=== PATIENT | female | born 1955 | race African-American/Black ===

== ENCOUNTER 2017-01-22 08:45 | Emergency (ER) | payer MEDICAID ==
[~2017-01-22] VITALS: Ht 165.1 cm; Wt 105.0 kg
[~2017-01-22 08:45] MED LIST: ALBU8I INH; AMIT75 PO; AMLO5TAB22 PO; APIDINJ SQ; CIPR500T4 PO; CYCL1PAK PO; CYMB30CA PO; FERR324T4 PO; LAMO100 PO; LISI-360 PO; METF1000 PO; NOVOLOGSS SQ; RANI150T PO
[2017-01-22 08:54] VITALS: BP 153/66; PULSE 108; RESP 16; TEMP 98.5; O2SAT 95
--- NOTE | 2017-01-22 09:13 | PD ---
HPI Chief Complaint: Injury Time Seen by Provider: 09:00 Travel History International Travel<30 days: No Contact w/Intl Traveler<30days: No Traveled to known affect area: No History of Present Illness HPI 61-year-old female arrives today is after a fall on the sidewalk mechanical in nature. She injured her right fourth finger at the time of the fall and has since had constant pain. It's worse with active or passive range of motion. Associated symptoms include swelling and some ecchymosis. Onset sudden. Timing constant. PFSH Past Medical History Hx Anticoagulant Therapy: Yes Asthma: No Blood Disorders: No Anxiety: Yes Depression: Yes Heart Rhythm Problems: Yes (RAPID HEARTBEAT) Cancer: No Cardiovascular Problems: Yes (HTN, CHOL) High Cholesterol: Yes Chemotherapy: No Chest Pain: No Congestive Heart Failure: No COPD: Yes Diabetes: Yes Diminished Hearing: No Endocrine: Yes Genitourinary: No Hypertension: Yes Immune Disorder: No Musculoskeletal: Yes (ARTHRITIS, GENERALIZED WEAKNESS, SPUR LEFT FT) Neurologic: Yes (TREMORS) Psychiatric: Yes Reproductive: No Respiratory: Yes Radiation Therapy: No Sleep Apnea: Yes Thyroid Disease: No ?: Not Menopausal: Yes : 4 Para: 3 Miscarriage: 1 : 0 Past Surgical History Other Surgery: Yes (LUMPECTOMY) Social History Alcohol Use: No Tobacco Use: Yes (2 CIG PER DAY) Substance Use: No Allergies-Medications (Allergen,Severity, Reaction): Coded Allergies: aspirin (Unverified Allergy, Severe, 01/22/17) N/V ibuprofen (Unverified Allergy, Severe, 01/22/17) N/V Reported Meds & Prescriptions Reported Meds & Active Scripts Active Reported Atorvastatin (Atorvastatin Calcium) 20 Mg Tab 20 Mg PO HS Ranitidine (Ranitidine HCl) 150 Mg Tab 150 Mg PO DAILY Amlodipine (Amlodipine Besylate) 10 Mg Tab 10 Mg PO DAILY Lisinopril 10 Mg Tab 10 Mg PO DAILY Metformin (Metformin HCl) 1,000 Mg Tab 1,000 Mg PO BIDPC Gabapentin 300 Mg Cap 300 Mg PO TID Amitriptyline (Amitriptyline HCl) 75 Mg Tab 75 Mg PO HS Glipizide 5 Mg Tab 5 Mg PO BIDAC Take 30 minutes before a meal Review of Systems General / Constitutional: No: Fever Musculoskeletal: Positive: Pain Physical Exam Narrative GENERAL: 61-year-old female pleasant well-nourished well-developed SKIN: Warm and dry. HEAD: Normocephalic. MUSCULOSKELETAL: No cyanosis, or edema. The right fourth digit is extended ecchymotic minimally. Flexion of the fourth digit limited 2/2 pain. BACK: Nontender without obvious deformity. No CVA tenderness. Data Data Last Documented VS Vital Signs Date Time Temp Pulse Resp B/P (MAP) Pulse Ox O2 Delivery O2 Flow Rate FiO2 01/22/17 09:14 Room Air 01/22/17 08:54 98.5 108 16 153/66 (95) 95 VS reviewed Orders Orders Acetaminophen (Tylenol) (01/22/17 09:15) Finger (Bpo1myt) (01/22/17 ) Finger (Qkc3amc) (01/22/17 ) ^ Splint (01/22/17 10:03) Ed Discharge Order (01/22/17 10:28) MDM Medical Decision Making Medical Screen Exam Complete: Yes Emergency Medical Condition: Yes Differential Diagnosis frature, contusion, dislocation Narrative Course Last 24 hours Impressions Finger X-Ray 01/22/17 0000 Signed Impressions: Service Date/Time: Sunday, January 22, 2017 09:50 - CONCLUSION: Satisfactory realignment post reduction of the right fourth PIPJ Kapil Blake MD Finger X-Ray 01/22/17 0000 Signed Impressions: Service Date/Time: Sunday, January 22, 2017 09:16 - CONCLUSION: Dislocated PIP joint a the fourth digit Kapil Blake MD Dislocation reduced. Finger immobilized. Follow-up with hand surgery. Procedures Procedure Narrative Digital nerve block employed in her aseptic technique with bupivacaine at the base of the proximal phalanx of the left fourth digit Traction countertraction technique employed to reduce the dislocation of the proximal interphalangeal articulation of the fourth digit; pt tolerated well Diagnosis Primary Impression: Dislocation, finger, interphalangeal joint Qualified Codes: S63.279A - Dislocation of unspecified interphalangeal joint of unspecified finger, initial encounter Referrals: Fátima Kingsley MD 2 days Additional Instructions: You have a choice when it comes to health care, and we are glad that you chose [facility]. Hopefully, we have met your expectations on today's visit. You are welcome to return to [facility] at any time, as we are committed to meeting the health care needs of our community. Med/Other Pt SpecificInfo: No Change to Meds Disposition: 01 DISCHARGE HOME Condition: Scout Dejesus MD Jan 22, 2017 09:13
[2017-01-22] MEDS ORDERED: ACETAMINOPHEN 325 MG TAB PO ONE (09:15)
--- NOTE | 2017-01-22 09:28 | RADRPT ---
EXAM DATE/TIME: 01/22/2017 09:16 [facility] COMPARISON: No previous studies available for comparison. INDICATIONS : Fell, has right 4th finger pain, unable to move finger MEDICAL HISTORY : Diabetes mellitus type II. SURGICAL HISTORY : None. ENCOUNTER: Initial ACUITY: 3 days PAIN SCORE: 10/10 LOCATION: Right 4th finger FINDINGS: Examination of the fourth digit of the right hand demonstrates PIP joint dislocation. There is no alma dence of fracture. Soft tissue swelling is noted. CONCLUSION: Dislocated PIP joint a the fourth digit Kapil Blake MD on January 22, 2017 at 9:25 Board Certified Radiologist. This report was verified electronically.
[2017-01-22] MEDS ORDERED: RANI150T PO (09:38)
[2017-01-22] MEDS ORDERED: METF1000 PO (09:38)
[2017-01-22] MEDS ORDERED: AMLO10TA2 PO (09:38)
[2017-01-22] MEDS ORDERED: AMIT75TA2 PO (09:38)
[2017-01-22] MEDS ORDERED: GABA300C5 PO (09:38)
[2017-01-22] MEDS ORDERED: ATOR20TA15 PO (09:38)
[2017-01-22] MEDS ORDERED: LISI10TA3 PO (09:38)
[2017-01-22] MEDS ORDERED: GLIP5TAB8 PO (09:38)
--- NOTE | 2017-01-22 10:21 | RADRPT ---
EXAM DATE/TIME: 01/22/2017 09:50 [facility] COMPARISON: FINGER RIGHT 4TH DIGIT ([id number]), January 22, 2017, 9:16. INDICATIONS : Post reduction right 4th finger MEDICAL HISTORY : Diabetes mellitus type II. SURGICAL HISTORY : None. ENCOUNTER: Subsequent ACUITY: 3 days PAIN SCORE: 0/10 LOCATION: Right 4th finger FINDINGS: The dislocated PIPJ of the fourth digit has been satisfactorily reduced. There is no evidence of frac ture. Soft tissue swelling is apparent. CONCLUSION: Satisfactory realignment post reduction of the right fourth PIPJ Kapil Blake MD on January 22, 2017 at 10:15 Board Certified Radiologist. This report was verified electronically.
[2017-01-22 10:43] VITALS: RESP 18
== END 2017-01-22 10:50 | disposition home or self-care (01) ==
LOC: PHED 08:45
DX: S63.284A Dislocation of proximal interphalangeal joint of right ring finger, initial encounter (principal); F17.210 Nicotine dependence, cigarettes, uncomplicated; I10 Essential (primary) hypertension; W19.XXXA Unspecified fall, initial encounter; Y92.480 Sidewalk as the place of occurrence of the external cause
CPT/HCPCS: 26770; 64450; 73140

== ENCOUNTER 2017-01-25 10:38 | Emergency (ER) | payer MEDICAID ==
[~2017-01-25] VITALS: Ht 165.1 cm; Wt 105.5 kg
[~2017-01-25 10:38] MED LIST changes: -ALBU8I INH; -AMIT75 PO; +AMIT75TA2 PO; +AMLO10TA2 PO; -AMLO5TAB22 PO; -APIDINJ SQ; +ATOR20TA15 PO; -CIPR500T4 PO; -CYCL1PAK PO; -CYMB30CA PO; -FERR324T4 PO; +GABA300C5 PO; +GLIP5TAB8 PO; -LAMO100 PO; -LISI-360 PO; +LISI10TA3 PO; -NOVOLOGSS SQ
[2017-01-25 11:05] VITALS: BP 148/82; PULSE 100; RESP 18; TEMP 98.4; O2SAT 98
[2017-01-25] MEDS ORDERED: SODIUM CHLOR 0.9% 1000 ML INJ 1,000 ML IV ONE ×2 (11:30)
[2017-01-25] MEDS ORDERED: DIAZEPAM 5 MG TAB PO ONE (11:30)
[2017-01-25] MEDS ORDERED: INSULIN HUMAN REGULAR 1,000 UNITS/10 ML VIAL SQ ONE (11:30)
[2017-01-25] MEDS ORDERED: oxyCODONE/ACETAMINOPHEN 5 MG/325 MG TAB PO ONE (11:30)
--- NOTE | 2017-01-25 11:36 | PD ---
HPI Chief Complaint: Pain: Acute or Chronic Time Seen by Provider: 11:17 Travel History International Travel<30 days: No Contact w/Intl Traveler<30days: No Traveled to known affect area: No History of Present Illness HPI Patient is 61-year-old female who presents to emergency room after she fell on Monday. Patient reports that she suffered a mechanical trip and fall off the sidewalk, reports that she was seen in the emergency room as she had hand pain at that time. Patient reports no loss of consciousness or trauma to the head or neck. Patient reports that she had no back pain or hip pain after her fall, reports that today, she began to have left lower paraspinal back pain. Patient reports no radiation of pain, denies difficulty with gait ambulation. Patient also reports that her left hip does hurt her as well. Denies saddle anesthesia , denies incontinence of urine or bowel. Patient has been ambulating with normal gait for the past few days, patient reports that she is here to make sure she doesn't have a fracture. Patient currently is not on any anticoagulants. Patient also endorses that she is a diabetic, reports that she left her, and her [place] where she lives, she did not take her glipizide or metformin this morning. PFSH Past Medical History Hx Anticoagulant Therapy: Yes Asthma: No Blood Disorders: No Anxiety: Yes Depression: Yes Heart Rhythm Problems: Yes (RAPID HEARTBEAT) Cancer: No Cardiovascular Problems: Yes (HTN, high cholesterol) High Cholesterol: Yes Chemotherapy: No Chest Pain: No Congestive Heart Failure: No COPD: Yes Diabetes: Yes Patient Takes Glucophage: No Diminished Hearing: No Endocrine: Yes Genitourinary: No Hypertension: Yes Immune Disorder: No Musculoskeletal: Yes (ARTHRITIS, GENERALIZED WEAKNESS, SPUR LEFT FT) Neurologic: Yes (TREMORS) Psychiatric: Yes Reproductive: No Respiratory: Yes Radiation Therapy: No Sleep Apnea: Yes Thyroid Disease: No Tetanus Vaccination: < 5 Years Influenza Vaccination: No ?: Not Menopausal: Yes : 4 Para: 3 Miscarriage: 1 : 0 Past Surgical History Other Surgery: Yes (colonoscopy ) Social History Alcohol Use: No Tobacco Use: No Substance Use: No Allergies-Medications (Allergen,Severity, Reaction): Coded Allergies: aspirin (Unverified Allergy, Severe, 01/25/17) N/V ibuprofen (Unverified Allergy, Severe, 01/25/17) N/V Reported Meds & Prescriptions Reported Meds & Active Scripts Active Tylenol-Codeine #3 (Acetaminophen-Codeine) 300-30 mg Tab 1 Tab PO Q4H PRN Reported Atorvastatin (Atorvastatin Calcium) 20 Mg Tab 20 Mg PO HS Ranitidine (Ranitidine HCl) 150 Mg Tab 150 Mg PO DAILY Amlodipine (Amlodipine Besylate) 10 Mg Tab 10 Mg PO DAILY Lisinopril 10 Mg Tab 10 Mg PO DAILY Metformin (Metformin HCl) 1,000 Mg Tab 1,000 Mg PO BIDPC Gabapentin 300 Mg Cap 300 Mg PO TID Amitriptyline (Amitriptyline HCl) 75 Mg Tab 75 Mg PO HS Glipizide 5 Mg Tab 5 Mg PO BIDAC Take 30 minutes before a meal Review of Systems General / Constitutional: No: Fever Eyes: No: Visual changes HENT: No: Headaches Cardiovascular: No: Chest Pain or Discomfort Respiratory: No: Shortness of Breath Gastrointestinal: No: Abdominal Pain Genitourinary: No: Dysuria Musculoskeletal: Positive: Pain (low back pain) Skin: No Rash Neurologic: No: Weakness Psychiatric: No: Depression Endocrine: No: Polydipsia Hematologic/Lymphatic: No: Easy Bruising Physical Exam Narrative GENERAL: mild distress SKIN: Focused skin assessment warm/dry. HEAD: Atraumatic. Normocephalic. EYES: Pupils equal and round. No scleral icterus. No injection or drainage. ENT: No nasal bleeding or discharge. Mucous membranes pink and moist. NECK: Trachea midline. No JVD. CARDIOVASCULAR: Regular rate and rhythm. No murmur appreciated. RESPIRATORY: No accessory muscle use. Clear to auscultation. Breath sounds equal bilaterally. GASTROINTESTINAL: Abdomen soft, non-tender, nondistended. Hepatic and splenic margins not palpable. No saddle anesthesia MUSCULOSKELETAL: No obvious deformities. No clubbing. No cyanosis. No edema. Patient with left lower paraspinal muscle tenderness, no midline cervical or thoracic or lumbar tenderness, patient with normal range of motion to bilateral hips as well as bilateral knees, pulses intact, neurovascularly intact NEUROLOGICAL: Awake and alert. No obvious cranial nerve deficits. Motor grossly within normal limits. Normal speech. PSYCHIATRIC: Appropriate mood and affect; insight and judgment normal. Data Data Last Documented VS Vital Signs Date Time Temp Pulse Resp B/P (MAP) Pulse Ox O2 Delivery O2 Flow Rate FiO2 01/25/17 13:21 82 18 151/78 (102) 97 Room Air 01/25/17 11:05 98.4 Orders Orders Spine, Lumbar - Ltd (Ap & Lat) (01/25/17 ) Hip, Uni(Ap&Lat) W Ap Pelvis (01/25/17 ) Diazepam (Valium) (01/25/17 11:30) Oxycodone-Acetamin 5-325 Mg (Percocet (01/25/17 11:30) Insulin Human Regular Inj (Novolin R Inj (01/25/17 11:30) Sodium Chlor 0.9% 1000 Ml Inj (Ns 1000 M (01/25/17 11:30) Sodium Chlor 0.9% 1000 Ml Inj (Ns 1000 M (01/25/17 11:30) Basic Metabolic Panel (Bmp) (01/25/17 11:23) Iv Access Insert/Monitor (01/25/17 11:23) NPO (01/25/17 11:23) Ecg Monitoring (01/25/17 11:23) Oximetry (01/25/17 11:23) Urinalysis - C+S If Indicated (01/25/17 11:24) Blood Glucose (01/25/17 11:36) Blood Glucose (01/25/17 12:36) Labs Laboratory Tests Test 01/25/17 11:41 Blood Urea Nitrogen 6 MG/DL Creatinine 0.83 MG/DL Random Glucose 398 MG/DL Calcium Level 8.9 MG/DL Sodium Level 131 MEQ/L Potassium Level 4.7 MEQ/L Chloride Level 93 MEQ/L Carbon Dioxide Level 27.1 MEQ/L Anion Gap 11 MEQ/L Estimat Glomerular Filtration Rate 85 ML/MIN MDM Medical Decision Making Medical Screen Exam Complete: Yes Emergency Medical Condition: Yes Medical Record Reviewed: Yes Interpretation(s) Vital Signs Date Time Temp Pulse Resp B/P (MAP) Pulse Ox O2 Delivery O2 Flow Rate FiO2 01/25/17 11:05 98.4 100 18 148/82 (104) 98 Differential Diagnosis lumbar sprain, hip sprain/fracture, hyperglycemia Narrative Course During the course of the patients emergency department visit, the patients history, examination, and differential diagnosis were reviewed with the patient. The patient is a diabetic, requesting her blood sugar rechecked as she left her glucometer in [place] where she lives. Blood sugar was 397. The patient was placed on a personnel monitor with oximetry and frequent blood pressure monitoring. The patient had a 20-gauge IV access obtained and blood work sent for analysis. The patient was initially provided subcutaneous insulin as well as 2 L of IV fluid. The patients laboratory studies were reviewed and remarkable for : CBC & BMP Diagram 01/25/17 11:41 Calcium Level 8.9 Radiology studies were reviewed and remarkable for: Last Impressions Lumbar Spine X-Ray 01/25/17 0000 Signed Impressions: Service Date/Time: Wednesday, January 25, 2017 11:23 - CONCLUSION: Degenerative changes, negative for acute compression. Hadley Lake MD FACR Hip and Pelvis X-Ray 01/25/17 0000 Signed Impressions: Service Date/Time: Wednesday, January 25, 2017 11:23 - CONCLUSION: Negative for fracture Hadley Lake MD FACR Patient with no acute fractures, patient with mostly muscle sprain. Patient's blood sugar was 398, patient was given IV fluids as well as subcutaneous insulin , patient instructed to take her medications as prescribed, she was also instructed to check her blood sugars 3 times a day. Patient will follow up with primary care doctor and will return to emergency room as needed. Blood sugar now 300, patient is encouraged to on her sugar intake. Patient reports that she is feeling much better at this time. All labs and all studies were reviewed with patient in detail. She was also encouraged to take all her medications as instructed, she'll follow up with her primary care doctor. Diagnosis Primary Impression: Other sprain of left hip Additional Impressions: Low back pain Qualified Codes: M54.5 - Low back pain Hyperglycemia due to type 2 diabetes mellitus Qualified Codes: E11.65 - Type 2 diabetes mellitus with hyperglycemia Patient Instructions: General Instructions, Narcotic given in the ED Additional Instructions: Please follow up with your primary care doctor in 1-2 days Return to the ER if symptoms worsen or progress Return to the ER as needed Please monitor your blood sugars carefully Med/Other Pt SpecificInfo: Prescription(s) given Scripts Acetaminophen-Codeine (Tylenol-Codeine #3) 300-30 mg Tab 1 TAB PO Q4H Y for PAIN, #10 TAB 0 Refills Prov: Alexa Jiang DO 01/25/17 Disposition: 01 DISCHARGE HOME Condition: Stable Alexa Jiang DO Jan 25, 2017 11:36
--- NOTE | 2017-01-25 11:59 | RADRPT ---
EXAM DATE/TIME: 01/25/2017 11:23 [facility] COMPARISON: No previous studies available for comparison. INDICATIONS : Fall, low back pain. MEDICAL HISTORY : None. SURGICAL HISTORY : None. ENCOUNTER: Initial ACUITY: 4 - 6 days PAIN SCORE: 10/10 LOCATION: low back FINDINGS: There is good preservation of vertebral body heights. There is minimal displacement at L4-5 and L5-S 1. There moderate degenerative changes in the facets. CONCLUSION: Degenerative changes, negative for acute compression. Hadley Lake MD FACR on January 25, 2017 at 11:57 Board Certified Radiologist. This report was verified electronically.
[2017-01-25 12:06] VITALS: RESP 18; O2SAT 96
--- NOTE | 2017-01-25 12:09 | RADRPT ---
EXAM DATE/TIME: 01/25/2017 11:23 [facility] COMPARISON: No previous studies available for comparison. INDICATIONS : Fall, left hip pain. MEDICAL HISTORY : None. SURGICAL HISTORY : None. ENCOUNTER: Initial ACUITY: 4 - 6 days PAIN SCORE: 10/10 LOCATION: Left hip FINDINGS: Examination of the left hip was performed with AP Pelvis. The primary and secondary trabecular patte rn of the femoral neck is intact. The hip joint is of normal width without significant sclerosis or bony hypertrophy. The acetabulum is grossly intact. CONCLUSION: Negative for fracture Hadley Lake MD FACR on January 25, 2017 at 11:58 Board Certified Radiologist. This report was verified electronically.
[2017-01-25 12:18] VITALS: BP 127/73; PULSE 85; RESP 17; O2SAT 97
[2017-01-25 12:25] LABS: POTASSIUM 4.7 MEQ/L (3.5-5.1)
[2017-01-25 12:28] LABS: BICARBONATE 27.1 MEQ/L (21.0-32.0)
[2017-01-25] MEDS ORDERED: TYLETAB34 PO (12:40)
[2017-01-25 13:21] VITALS: BP 151/78; PULSE 82; RESP 18; O2SAT 97
[2017-01-25 14:23] VITALS: BP 158/82
== END 2017-01-25 14:24 | disposition home or self-care (01) ==
LOC: PHED 10:38
DX: S73.192A Other sprain of left hip, initial encounter (principal); M54.5 Low back pain; E11.65 Type 2 diabetes mellitus with hyperglycemia; W01.0XXA Fall on same level from slipping, tripping and stumbling without subsequent striking against object, initial encounter; Y92.480 Sidewalk as the place of occurrence of the external cause; Z79.84 Long term (current) use of oral hypoglycemic drugs
CPT/HCPCS: 72100; 73502; 80048; 96360; 96361; 99285; J1815; J7030

== ENCOUNTER 2017-02-18 20:50 | Inpatient (IN) | payer MEDICAID ==
[~2017-02-18] VITALS: Ht 165.1 cm; Wt 105.0 kg
[~2017-02-18 20:50] MED LIST changes: +TYLETAB34 PO
[2017-02-18 20:58] VITALS: BP 159/70; PULSE 119; RESP 20; TEMP 99; O2SAT 96
[2017-02-18 21:07] VITALS: PULSE 100; RESP 18; O2SAT 97
[2017-02-18] MEDS ORDERED: LAMO200T PO (21:12)
--- NOTE | 2017-02-18 21:27 | PD ---
HPI Chief Complaint: Dizziness Time Seen by Provider: 21:18 Travel History International Travel<30 days: No Contact w/Intl Traveler<30days: No Traveled to known affect area: No History of Present Illness HPI 61-year-old female presents to the emergency department from family members home by EMS transport for complaint of dizziness and difficulty walking. Patient reportedly has felt weak with near fall since 8:30 this morning. Patient denies any injury today. Patient states she's had similar symptoms in the past 2 months. Patient she had a fall 2 months ago and was evaluated at [facility] reportedly. Patient is diabetic and per EMS blood sugar was 240. Patient denies any fever or chills. Patient denies chest pain or shortness of breath. Patient does complain of right upper quadrant abdominal pain. Patient has had nausea and vomiting. Patient denies hematemesis coffee- ground emesis or bilious emesis. Patient states last week she had 2 episodes with blood in her stool twice. Patient does not take nonsteroidal anti- inflammatory medications secondary to allergy. Patient takes no blood thinning agents. Patient is currently on medication for diabetes, hypertension, dyslipidemia, tremor, rapid heartbeat, and arthritis. Patient reports that standing and walking seemed to make her dizziness worse and at times causes her to see black spots. Patient complains of fatigue. PFSH Past Medical History Narrative Medical Anxiety depression COPD diabetes dyslipidemia hypertension tremor arthritis rapid heartbeat cataracts colonoscopy no tobacco use no alcohol use: Nursing notes reviewed Hx Anticoagulant Therapy: Yes Asthma: No Blood Disorders: No Anxiety: Yes Depression: Yes Heart Rhythm Problems: Yes (RAPID HEARTBEAT) Cancer: No Cardiovascular Problems: Yes (HTN, high cholesterol) High Cholesterol: Yes Chemotherapy: No Chest Pain: No Congestive Heart Failure: No COPD: Yes Diabetes: Yes Patient Takes Glucophage: Yes (last had 0730 today) Diminished Hearing: No Endocrine: Yes Genitourinary: No Hypertension: Yes Immune Disorder: No Musculoskeletal: Yes (ARTHRITIS, GENERALIZED WEAKNESS, SPUR LEFT FT) Neurologic: Yes (TREMORS) Psychiatric: Yes Reproductive: No Respiratory: Yes Radiation Therapy: No Sleep Apnea: Yes Thyroid Disease: No Tetanus Vaccination: < 5 Years Influenza Vaccination: Yes ?: Not Menopausal: Yes : 4 Para: 3 Miscarriage: 1 : 0 Past Surgical History Other Surgery: Yes (colonoscopy ) Social History Alcohol Use: No Tobacco Use: No Substance Use: No Allergies-Medications (Allergen,Severity, Reaction): Coded Allergies: aspirin (Unverified Allergy, Severe, 01/25/17) N/V ibuprofen (Unverified Allergy, Severe, 01/25/17) N/V Reported Meds & Prescriptions Reported Meds & Active Scripts Active Reported Lamotrigine 200 Mg Tab 200 Mg PO BID Atorvastatin (Atorvastatin Calcium) 20 Mg Tab 20 Mg PO HS Ranitidine (Ranitidine HCl) 150 Mg Tab 150 Mg PO DAILY Amlodipine (Amlodipine Besylate) 10 Mg Tab 10 Mg PO DAILY Lisinopril 10 Mg Tab 10 Mg PO DAILY Metformin (Metformin HCl) 1,000 Mg Tab 1,000 Mg PO BIDPC Gabapentin 300 Mg Cap 300 Mg PO TID Amitriptyline (Amitriptyline HCl) 75 Mg Tab 75 Mg PO HS Glipizide 5 Mg Tab 5 Mg PO BIDAC Take 30 minutes before a meal Review of Systems Except as stated in HPI: all other systems reviewed are Neg General / Constitutional: No: Fever, Chills Eyes: No: Visual changes HENT: Positive: Lightheadedness, No: Headaches, Neck Pain Cardiovascular: No: Chest Pain or Discomfort, Palpitations Respiratory: No: Cough, Shortness of Breath Gastrointestinal: Positive: Nausea, Vomiting, Abdominal Pain, Hematochezia (x2) , No: Diarrhea, Hematemesis Genitourinary: No: Dysuria, Decreased Urinary Output Musculoskeletal: No: Myalgias, Arthralgias Skin: No Rash Neurologic: Positive: Weakness, Dizziness, No: Syncope, Focal Abnormalities, Coordination Problem, Headache, Change in Mentation, Slurred Speech, Paresthesia Psychiatric: No: Anxiety Hematologic/Lymphatic: No: Lymph Node Enlargement Physical Exam Narrative GENERAL: SKIN: Warm and dry. HEAD: Atraumatic. Normocephalic. EYES: Pupils equal and round. Extraocular muscles intact No scleral icterus. No injection or drainage. ENT: No nasal bleeding or discharge. Mucous membranes pink and moist. Airway is patent. Edentulous. NECK: Trachea midline. No JVD. Supple. CARDIOVASCULAR: Regular rate and rhythm. RESPIRATORY: No accessory muscle use. Clear to auscultation. Breath sounds equal bilaterally. GASTROINTESTINAL: Abdomen soft, non-tender, nondistended. Hepatic and splenic margins not palpable. MUSCULOSKELETAL: Extremities without clubbing, cyanosis, or edema. No obvious deformities. NEUROLOGICAL: Awake and alert. GCS 15. No obvious cranial nerve deficits. Motor grossly within normal limits. Five out of 5 muscle strength in the arms and legs. Sensory exam grossly intact. No pronator drift. No limb ataxia. Normal speech. PSYCHIATRIC: Appropriate mood and affect; insight and judgment normal. Data Data Last Documented VS Vital Signs Date Time Temp Pulse Resp B/P (MAP) Pulse Ox O2 Delivery O2 Flow Rate FiO2 02/18/17 21:20 Room Air 02/18/17 21:07 100 18 97 02/18/17 20:58 99.0 159/70 (99) Orders Orders Electrocardiogram (02/18/17 21:18) Complete Blood Count With Diff (02/18/17 21:18) Comprehensive Metabolic Panel (02/18/17 21:18) Magnesium (Mg) (02/18/17 21:18) B-Type Natriuretic Peptide (02/18/17 21:18) Ckmb (Isoenzyme) Profile (02/18/17 21:18) Troponin I (02/18/17 21:18) Act Partial Throm Time (Ptt) (02/18/17 21:18) Prothrombin Time / Inr (Pt) (02/18/17 21:18) Urinalysis - C+S If Indicated (02/18/17 21:18) Ct Brain W/O Iv Contrast(Rout) (02/18/17 21:18) Ecg Monitoring (02/18/17 21:18) Iv Access Insert/Monitor (02/18/17 21:18) Oximetry (02/18/17 21:18) Sodium Chloride 0.9% Flush (Ns Flush) (02/18/17 21:30) Alcohol (Ethanol) (02/18/17 21:18) Ondansetron Inj (Zofran Inj) (02/18/17 21:30) Type And Screen (02/18/17 21:44) Red Blood Cells (Rbc) (02/18/17 21:44) Blood Product Administration (02/18/17 21:44) Sodium Chlor 0.9% 250 Ml Inj (Ns 250 Ml (02/18/17 21:45) Ammonia (02/18/17 21:54) Sodium Chloride 0.9... W/Pantoprazole In (02/18/17 21:54) Sodium Chloride 0.9... W/Pantoprazole In (02/18/17 21:54) Admit Order (Ed Use Only) (02/18/17 ) Chain Sales Representative / Telemetry [id number] (02/18/17 22:15) Diet Npo (02/19/17 Breakfast) Activity Bed Rest (02/18/17 22:15) Notify Dr: Other (02/18/17 22:15) Labs Laboratory Tests Test 02/18/17 21:05 02/18/17 22:05 White Blood Count 10.9 TH/MM3 Red Blood Count 3.18 MIL/MM3 Hemoglobin 5.4 GM/DL Hematocrit 18.7 % Mean Corpuscular Volume 58.6 FL Mean Corpuscular Hemoglobin 17.1 PG Mean Corpuscular Hemoglobin Concent 29.1 % Red Cell Distribution Width 20.7 % Platelet Count 505 TH/MM3 Mean Platelet Volume 8.8 FL Neutrophils (%) (Auto) 76.9 % Lymphocytes (%) (Auto) 15.3 % Monocytes (%) (Auto) 6.6 % Eosinophils (%) (Auto) 0.8 % Basophils (%) (Auto) 0.4 % Neutrophils # (Auto) 8.4 TH/MM3 Lymphocytes # (Auto) 1.7 TH/MM3 Monocytes # (Auto) 0.7 TH/MM3 Eosinophils # (Auto) 0.1 TH/MM3 Basophils # (Auto) 0.0 TH/MM3 CBC Comment AUTO DIFF Prothrombin Time 10.5 SEC Prothromb Time International Ratio 1.0 RATIO Activated Partial Thromboplast Time 23.1 SEC Blood Urea Nitrogen 5 MG/DL Creatinine 0.82 MG/DL Random Glucose 274 MG/DL Total Protein 7.9 GM/DL Albumin 3.0 GM/DL Calcium Level 8.5 MG/DL Magnesium Level 1.5 MG/DL Alkaline Phosphatase 78 U/L Aspartate Amino Transf (AST/SGOT) 10 U/L Alanine Aminotransferase (ALT/SGPT) 15 U/L Total Bilirubin 0.2 MG/DL Sodium Level 135 MEQ/L Potassium Level 4.4 MEQ/L Chloride Level 99 MEQ/L Carbon Dioxide Level 25.8 MEQ/L Anion Gap 10 MEQ/L Estimat Glomerular Filtration Rate 86 ML/MIN Total Creatine Kinase 50 U/L Troponin I LESS THAN 0.02 NG/ML B-Type Natriuretic Peptide 16 PG/ML Ethyl Alcohol Level LESS THAN 3 MG/DL MDM Medical Decision Making Medical Screen Exam Complete: Yes Emergency Medical Condition: Yes Medical Record Reviewed: Yes Interpretation(s) EKG: Sinus tachycardia rate [address] elevation or injury pattern change noted nonspecific T wave abnormality Differential Diagnosis Dizziness, anemia, GI bleed, ACS, arrhythmia, TIA, biliary colic, peptic ulcer disease, pancreatitis, electrolyte disturbance, uncontrolled diabetes, UTI Narrative Course Patient placed on cancellation clerk with continuous pulse oximetry IV access obtained EKG ordered CT brain noncontrast ordered Rectal exam performed by me no tears no fissure no prolapsed hemorrhoids; normal sphincter tone; loose brown stool in rectal vault that is Hemoccult positive. Lab reports hemoglobin 5.4; type and screen with type and cross for 3 units of blood ordered we'll transfuse 2 units once blood is available. This is shared with the patient who reports the past she has received blood transfusion when she lived in [place] but cannot tell me how long ago that was. Physician Communication Physician Communication discussed with Dr Redd will admit to her service Diagnosis Primary Impression: GI bleed Additional Impression: Anemia Admitting Information Admitting Physician Requests: Admit Mackenzie Germain MD Feb 18, 2017 21:27
[2017-02-18] MEDS ORDERED: ONDANSETRON HCL 4 MG/2 ML VIAL IV PUSH ONE (21:30)
[2017-02-18] MEDS ORDERED: SODIUM CHLORIDE 0.9% FLUSH 10 ML FLUSH IVF PRN (21:30)
[2017-02-18 21:40] LABS: AUTOMATED NEUTROPHIL # 8.4 TH/MM3 (1.8-7.7); BASOPHIL % 0.4 % (0.0-2.0); EOSINOPHIL # 0.1 TH/MM3 (0-0.4); EOSINOPHIL % 0.8 % (0.0-4.0); LYMPH % 15.3 % (9.0-44.0); LYMPHOCYTE # 1.7 TH/MM3 (1.0-4.8); MEAN CELL VOLUME 58.6 FL (80.0-100.0); MEAN CORPUSCULAR HEMOGLOBIN 17.1 PG (27.0-34.0); MONO % 6.6 % (0.0-8.0); NEUT % 76.9 % (16.0-70.0); PLATELET COUNT 505 TH/MM3 (150-450); RED BLOOD COUNT 3.18 MIL/MM3 (4.00-5.30); RED CELL DISTRIBUTION WIDTH 20.7 % (11.6-17.2); WHITE BLOOD COUNT 10.9 TH/MM3 (4.0-11.0)
[2017-02-18 21:41] LABS: MEAN CORPUSCULAR HGB CONC 29.1 % (32.0-36.0)
[2017-02-18] MEDS ORDERED: SODIUM CHLOR 0.9% 250 ML INJ 250 ML IV ONE (21:45)
[2017-02-18 21:46] LABS: HEMATOCRIT 18.7 % (35.0-46.0); HEMO FLAGS AUTO DIFF
[2017-02-18 21:47] LABS: APTT (PATIENT) 23.1 SEC (24.3-30.1); PROTHROMBIN TIME - PATIENT 10.5 SEC (9.8-11.6)
[2017-02-18] MEDS ORDERED: PANTOPRAZOLE INJ 80 MG in SODIUM CHLORIDE 0.9% INJ 35 ML IV ONE (21:54)
[2017-02-18 21:55] LABS: ANION GAP 10 MEQ/L (5-15); AST (GOT) 10 U/L (15-37); BICARBONATE 25.8 MEQ/L (21.0-32.0); BLOOD UREA NITROGEN 5 MG/DL (7-18); CHLORIDE 99 MEQ/L (98-107); GLOMERULAR FILTRATION RATE 86 ML/MIN (>89); MAGNESIUM 1.5 MG/DL (1.5-2.5); POTASSIUM 4.4 MEQ/L (3.5-5.1); SODIUM (NA) 135 MEQ/L (136-145)
--- NOTE | 2017-02-18 21:55 | RADRPT ---
EXAM DATE/TIME: 02/18/2017 21:34 [facility] COMPARISON: No previous studies available for comparison. INDICATIONS : Dizziness. RADIATION DOSE: 56.35 CTDIvol (mGy) MEDICAL HISTORY : Cardiovascular disease. Hypertension. Chronic obstructive pulmonary disease.Diabetes SURGICAL HISTORY : None. ENCOUNTER: Initial ACUITY: 1 day PAIN SCALE: 0/10 LOCATION: cranial TECHNIQUE: Multiple contiguous axial images were obtained of the head. Using automated exposure control and adj ustment of the mA and/or kV according to patient size, radiation dose was kept as low as reasonably a chievable to obtain optimal diagnostic quality images. DICOM format image data is available electro nically for review and comparison. FINDINGS: CEREBRUM: The ventricles are normal for age. No evidence of midline shift, mass lesion, hemorrhage or acute in farction. No extra-axial fluid collections are seen. POSTERIOR FOSSA: The cerebellum and brainstem are intact. The 4th ventricle is midline. The cerebellopontine angle i s unremarkable. EXTRACRANIAL: The visualized portion of the orbits is intact. SKULL: The calvaria is intact. No evidence of skull fracture. CONCLUSION: Normal examination for a patient of this age. No significant change has occurred. Geovany Calix MD on February 18, 2017 at 21:52 Board Certified Radiologist. This report was verified electronically.
[2017-02-18 21:56] LABS: ALT (GPT) 15 U/L (10-53)
[2017-02-18 21:58] LABS: ALCOHOL LESS THAN 3 MG/DL (0-5)
[2017-02-18 22:00] LABS: ALKALINE PHOSPHATASE 78 U/L (45-117); TOTAL BILIRUBIN ADULT 0.2 MG/DL (0.2-1.0)
[2017-02-18 22:02] LABS: CREATINE KINASE 50 U/L (26-192)
[2017-02-18] MEDS: PANTOPRAZOLE INJ 80 MG in SODIUM CHLORIDE 0.9% INJ 100 ML IV SCH (22:07)
[2017-02-18] MEDS ORDERED: ONDANSETRON HCL 4 MG/2 ML VIAL IV PUSH PRN (22:15)
[2017-02-18] MEDS ORDERED: SODIUM CHLORIDE 0.9% FLUSH 10 ML FLUSH IV FLUSH PRN (22:15)
[2017-02-18 22:23] LABS: OVALOCYTES 1+ (NORMAL); PLATELET ESTIMATE SMEAR HIGH (NORMAL); PLATELET MORPHOLOGY ENLARGED (NORMAL); STOMATOCYTES 1+ (NORMAL)
[2017-02-18 22:24] LABS: SCAN/DIFF AUTO DIFF CONFIRMED
[2017-02-18] MEDS ORDERED: GLUCAGON 1 MG/ML VIAL OTHER PRN (22:30)
[2017-02-18] MEDS ORDERED: DEXTROSE 50% IN WATER 50 ML VIAL(D50) IV PUSH PRN (22:30)
[2017-02-19] VITALS (12 sets, daily range): BP systolic 112–138; BP diastolic 57–68; PULSE 85–106; RESP 18–20; TEMP 98.1–99.3; O2SAT 93–98
--- NOTE | 2017-02-19 04:05 | HHI.HP ---
[facility] Service [facility] Primary Care Physician Unknown Admission Diagnosis GI bleed w/ anemia Diagnoses: Travel History International Travel<30 Days: No Contact w/Intl Traveler <30 Da: No Traveled to Known Affected Are: No History of Present Illness 61-year-old female with past medical history significant for hypertension, hyperlipidemia, diabetes mellitus and depression presents with dizziness and fatigue 2 days. The patient also reports multiple episodes of emesis today. She denies any fever/chills. She reports bright red blood in her stool for the past 2 days. She had a transfusion with a colonoscopy approximately one year ago in [place]. States the colonoscopy was significant only for a polyp which was removed. H&H was found to be 5.4/18.7. She was tachycardic on arrival to [facility]. Review of Systems Denies fever or chills Denies blurry vision, otorrhea, rhinorrhea Denies sore throat and cough No chest pain, palpitations, shortness of breath No abdominal pain Denies constipation/diarrhea. Positive nausea/vomiting Denies muscle pain/weakness No rashes Past Family Social History Past Medical History Hypertension Hyperlipidemia Type 2 diabetes mellitus Depression Past Surgical History Exploratory laparotomy in 1979 for unclear reasons Reported Medications Reported Meds & Active Scripts Active Reported Lamotrigine 200 Mg Tab 200 Mg PO BID Atorvastatin (Atorvastatin Calcium) 20 Mg Tab 20 Mg PO HS Ranitidine (Ranitidine HCl) 150 Mg Tab 150 Mg PO DAILY Amlodipine (Amlodipine Besylate) 10 Mg Tab 10 Mg PO DAILY Lisinopril 10 Mg Tab 10 Mg PO DAILY Metformin (Metformin HCl) 1,000 Mg Tab 1,000 Mg PO BIDPC Gabapentin 300 Mg Cap 300 Mg PO TID Amitriptyline (Amitriptyline HCl) 75 Mg Tab 75 Mg PO HS Glipizide 5 Mg Tab 5 Mg PO BIDAC Take 30 minutes before a meal Allergies: Coded Allergies: aspirin (Unverified Allergy, Severe, 01/25/17) N/V ibuprofen (Unverified Allergy, Severe, 01/25/17) N/V Family History Mother with CAD Social History Quit alcohol and tobacco on 12/15/16. Smoked for 15 years 1-1/2-2 packs per day. Denies illicit drugs. Physical Exam Vital Signs Vital Signs Date Time Temp Pulse Resp B/P (MAP) Pulse Ox O2 Delivery O2 Flow Rate FiO2 02/19/17 01:39 98.5 92 18 112/57 98 02/19/17 01:17 98.6 92 18 120/59 93 02/19/17 00:23 98.7 106 20 119/59 (79) 97 02/18/17 21:20 Room Air 02/18/17 21:07 100 18 97 Room Air 02/18/17 20:58 99.0 119 20 159/70 (99) 96 Physical Exam GENERAL: female lying in bed SKIN: No rashes, ecchymoses or lesions. Cool and dry. HEAD: Atraumatic. Normocephalic. No temporal or scalp tenderness. EYES: Pupils equal round and reactive. Extraocular motions intact. No scleral icterus. No injection or drainage. ENT: Nose without bleeding, purulent drainage or septal hematoma. Throat without erythema, tonsillar hypertrophy or exudate. Uvula midline. Airway patent. NECK: Trachea midline. No JVD or lymphadenopathy. Supple, nontender, no meningeal signs. CARDIOVASCULAR: Regular rate and rhythm without murmurs, gallops, or rubs. RESPIRATORY: Clear to auscultation. Breath sounds equal bilaterally. No wheezes , rales, or rhonchi. GASTROINTESTINAL: Abdomen soft, non-tender, nondistended. No hepato-splenomegaly , or palpable masses. No guarding. MUSCULOSKELETAL: Extremities without clubbing, cyanosis, or edema. No joint tenderness, effusion, or edema noted. No calf tenderness. NEUROLOGICAL: Awake and alert. Cranial nerves II through XII intact. Motor and sensory grossly within normal limits. Normal speech. Laboratory Laboratory Tests Test 02/18/17 21:05 02/18/17 22:05 White Blood Count 10.9 Red Blood Count 3.18 Hemoglobin 5.4 Hematocrit 18.7 Mean Corpuscular Volume 58.6 Mean Corpuscular Hemoglobin 17.1 Mean Corpuscular Hemoglobin Concent 29.1 Red Cell Distribution Width 20.7 Platelet Count 505 Mean Platelet Volume 8.8 Neutrophils (%) (Auto) 76.9 Lymphocytes (%) (Auto) 15.3 Monocytes (%) (Auto) 6.6 Eosinophils (%) (Auto) 0.8 Basophils (%) (Auto) 0.4 Neutrophils # (Auto) 8.4 Lymphocytes # (Auto) 1.7 Monocytes # (Auto) 0.7 Eosinophils # (Auto) 0.1 Basophils # (Auto) 0.0 CBC Comment AUTO DIFF Differential Comment AUTO DIFF CONFIRMED Platelet Estimate HIGH Platelet Morphology Comment ENLARGED Ovalocytes 1+ Stomatocytes 1+ Prothrombin Time 10.5 Prothromb Time International Ratio 1.0 Activated Partial Thromboplast Time 23.1 Blood Urea Nitrogen 5 Creatinine 0.82 Random Glucose 274 Total Protein 7.9 Albumin 3.0 Calcium Level 8.5 Magnesium Level 1.5 Alkaline Phosphatase 78 Aspartate Amino Transf (AST/SGOT) 10 Alanine Aminotransferase (ALT/SGPT) 15 Total Bilirubin 0.2 Sodium Level 135 Potassium Level 4.4 Chloride Level 99 Carbon Dioxide Level 25.8 Anion Gap 10 Estimat Glomerular Filtration Rate 86 Total Creatine Kinase 50 Troponin I LESS THAN 0.02 B-Type Natriuretic Peptide 16 Ethyl Alcohol Level LESS THAN 3 Ammonia 34 Result Diagram: 02/18/17210402/18/172104 Caprini VTE Risk Assessment Caprini VTE Risk Assessment: Mod/High Risk (score >= 2) Caprini Risk Assessment Model Point Value = 1 Point Value = 2 Point Value = 3 Point Value = 5 Age 41-60 Minor surgery BMI > 25 kg/m2 Swollen legs Varicose veins or History of unexplained or recurrent spontaneous Oral contraceptives or hormone replacement Sepsis (< 1 month) Serious lung disease, including pneumonia (< 1 month) Abnormal pulmonary function Acute myocardial infarction Congestive heart failure (< 1 month) History of inflammatory bowel disease Medical patient at bed rest Age 61-74 Arthroscopic surgery Major open surgery (> 45 min) Laparoscopic surgery (> 45 min) Malignancy Confined to bed (> 72 hours) Immobilizing plaster cast Central venous access Age >= 75 History of VTE Family history of VTE Factor V Leiden Prothrombin [id number] Lupus anticoagulant Anticardiolipin antibodies Elevated serum homocysteine Heparin-induced thrombocytopenia Other congenital or acquired thrombophilia Stroke (< 1 month) Elective arthroplasty Hip, pelvis, or leg fracture Acute spinal cord injury (< 1 month) Prophylaxis Regimen Total Risk Factor Score Risk Level Prophylaxis Regimen 0-1 Low Early ambulation 2 Moderate Order ONE of the following: *Sequential Compression Device (SCD) *Heparin 5000 units SQ BID 3-4 Higher Order ONE of the following medications: *Heparin 5000 units SQ TID *Enoxaparin/Lovenox 40 mg SQ daily (WT < 150 kg, CrCl > 30 mL/min) *Enoxaparin/Lovenox 30 mg SQ daily (WT < 150 kg, CrCl > 10-29 mL/min) *Enoxaparin/Lovenox 30 mg SQ BID (WT < 150 kg, CrCl > 30 mL/min) AND/OR *Sequential Compression Device (SCD) 5 or more Highest Order ONE of the following medications: *Heparin 5000 units SQ TID (Preferred with Epidurals) *Enoxaparin/Lovenox 40 mg SQ daily (WT < 150 kg, CrCl > 30 mL/min) *Enoxaparin/Lovenox 30 mg SQ daily (WT < 150 kg, CrCl > 10-29 mL/min) *Enoxaparin/Lovenox 30 mg SQ BID (WT < 150 kg, CrCl > 30 mL/min) AND *Sequential Compression Device (SCD) Assessment and Plan Assessment and Plan Assessment/plan: 1. Severe anemia/GI bleed H&H 5.4/18.7 Patient with bright red blood mixed in with her stool Protonix ggt Gastroenterology consulted, appreciate recommendations Currently receiving 2 units packed red blood cells Follow CBC Monitor for signs of acute bleed/shock 2. Type 2 diabetes mellitus Holding oral anti-hyperglycemics SSI 3. Hypertension/hyperlipidemia Continue home medications 4. Depression Continue home amitriptyline and Lamictal FEN NPO Electrolytes: Monitor and replete when necessary Holding pharmacologic anticoagulation for active GI bleed Case discussed with ER physician at length Physician Certification 2 Midnight Certification Type: Admission for Inpatient Services Order for Inpatient Services The services are ordered in accordance with Medicare regulations or non- Medicare payer requirements, as applicable. In the case of services not specified as inpatient-only, they are appropriately provided as inpatient services in accordance with the 2-midnight benchmark. Estimated LOS (days): 2 2 days is the estimated time the patient will need to remain in the hospital, assuming treatment plan goals are met and no additional complications. Post-Hospital Plan: Not yet determined Alexa Redd MD Feb 19, 2017 04:05
[2017-02-19] MEDS: INSULIN ASPART SUPPLEMENTAL SCALE SQ SCH ×4 (08:00→21:00)
[2017-02-19] MEDS: SODIUM CHLORIDE 0.9% FLUSH 10 ML FLUSH IV FLUSH SCH ×2 (08:24→21:11)
--- NOTE | 2017-02-19 08:35 | HHI.PR ---
Subjective Remarks in no distress. denies chest pain or sob. no active bleeding over night. Objective Vitals Vital Signs Date Time Temp Pulse Resp B/P (MAP) Pulse Ox O2 Delivery O2 Flow Rate FiO2 02/19/17 05:35 98.1 85 20 123/59 (80) 96 02/19/17 04:45 98.5 87 18 120/58 02/19/17 04:30 98.2 85 18 120/65 94 02/19/17 01:39 98.5 92 18 112/57 98 02/19/17 01:17 98.6 92 18 120/59 93 02/19/17 00:23 98.7 106 20 119/59 (79) 97 02/18/17 21:20 Room Air 02/18/17 21:07 100 18 97 Room Air 02/18/17 20:58 99.0 119 20 159/70 (99) 96 I/O 02/18/17 02/18/17 02/18/17 02/19/17 02/19/17 02/19/17 07:00 15:00 23:00 07:00 15:00 23:00 Intake Total 35 ml 310 ml 300 ml Balance 35 ml 310 ml 300 ml Intake IV Total 35 ml Packed Cells 300 ml 300 ml Blood Product IV Normal Saline Flush 10 ml # Voids 1 Result Diagram: 02/18/17210402/18/172104 Imaging Last Impressions Head CT 02/18/172117 Signed Impressions: Service Date/Time: Saturday, February 18, 2017 21:34 - CONCLUSION: Normal examination for a patient of this age. No significant change has occurred. Geovany Calix MD Objective Remarks GENERAL: This is a well-nourished, well-developed patient, in no apparent distress. CARDIOVASCULAR: Regular rate and regular rhythm without murmurs, gallops, or rubs. RESPIRATORY: Clear to auscultation. Breath sounds equal bilaterally. No wheezes , rales, or rhonchi. GASTROINTESTINAL: Abdomen soft, non-tender, nondistended. Normal, active bowel sounds MUSCULOSKELETAL: Extremities without clubbing, cyanosis, or edema. NEURO: Alert & Oriented x4 to person, place, time, situation. Moves all ext x4 Medications and IVs Current Medications Sodium Chloride (NS Flush) 2 ml UNSCH PRN IVF FLUSH AFTER USING IV ACCESS; Start 02/18/17 at 21:30 Ondansetron HCl (Zofran Inj) 4 mg ONCE ONCE IV PUSH Last administered on 21:53; Start 02/18/17 at 21:30; Stop 02/18/17 at 21:31; Status DC Sodium Chloride 250 ml @ 15 mls/hr ONCE ONCE IV Last administered on 01:14; Start 02/18/17 at 21:45; Stop 02/19/17 at 14:24 Pantoprazole Sodium 80 mg/ Sodium Chloride 35 ml @ 420 mls/hr Q5M ONCE IV Last administered on 02/18/17 22:07; Start 02/18/17 at 21:54; Stop 02/18/17 at 21:58; Status DC Pantoprazole Sodium 80 mg/ Sodium Chloride 100 ml @ 10 mls/hr Q10H IV Last administered on 02/18/17 22:07; Start 02/18/17 at 21:54 Sodium Chloride (NS Flush) 2 ml UNSCH PRN IV FLUSH FLUSH AFTER USING IV ACCESS ; Start 02/18/17 at 22:15 Sodium Chloride (NS Flush) 2 ml BID IV FLUSH ; Start 02/19/17 at 09:00 Ondansetron HCl (Zofran Inj) 4 mg Q6H PRN IV PUSH NAUSEA; Start 02/18/17 at 22: 15 Pantoprazole Sodium (Protonix Inj) 40 mg DAILY IV PUSH ; Start 02/19/17 at 09: 00; Stop 02/19/17 at 09:00; Status DC Amitriptyline HCl (Elavil) 75 mg HS PO ; Start 02/19/17 at 21:00 Amlodipine Besylate (Norvasc) 10 mg DAILY PO ; Start 02/19/17 at 09:00 Atorvastatin Calcium (Lipitor) 20 mg HS PO ; Start 02/19/17 at 21:00 Gabapentin (Neurontin) 300 mg TID PO ; Start 02/19/17 at 09:00 Lamotrigine (LaMICtal) 200 mg BID PO ; Start 02/19/17 at 09:00 Lisinopril (Prinivil) 10 mg DAILY PO ; Start 02/19/17 at 09:00 Famotidine (Pepcid) 20 mg DAILY PO ; Start 02/19/17 at 09:00 Dextrose (D50w (Vial) Inj) 50 ml UNSCH PRN IV PUSH HYPOGLYCEMIA-SEE COMMENTS; Start 02/18/17 at 22:30 Glucagon (Glucagon Inj) 1 mg UNSCH PRN OTHER HYPOGLYCEMIA-SEE COMMENTS; Start 02/18/17 at 22:30 Insulin Aspart (NovoLOG SUPPLEMENTAL SCALE) 1 ACHS SLIDING SCALE SQ ; Start at 08:00 A/P Assessment and Plan A/P 1. Severe anemia/GI bleed H&H 5.4/18.7 Patient with bright red blood mixed in with her stool Protonix ggt Gastroenterology consulted. Follow CBC Monitor for signs of acute bleed. 2. anemia- acute due to GI bleed s/p PRBC transfusion- will monitor H/H with further transfusion as needed. check iron profile. 3. Type 2 diabetes mellitus Holding oral anti-hyperglycemics SSI 4. Hypertension/hyperlipidemia Continue home medications 5. Depression Continue home amitriptyline and Lamictal DVT prophylaxis with SCD's- no chemical prophylaxis due to GI bleed. Mackenzie Hancock MD Feb 19, 2017 08:35
[2017-02-19] MEDS ORDERED: PANTOPRAZOLE SODIUM 40 MG VIAL IV PUSH SCH (09:00)
[2017-02-19] MEDS: PANTOPRAZOLE INJ 80 MG in SODIUM CHLORIDE 0.9% INJ 100 ML IV SCH ×2 (09:21→18:28)
[2017-02-19] MEDS: FAMOTIDINE 20 MG TAB PO SCH (09:25)
[2017-02-19] MEDS: lamoTRIgine 100 MG TAB PO SCH ×2 (09:25→21:11)
[2017-02-19] MEDS: LISINOPRIL 10 MG TAB PO SCH (09:25)
[2017-02-19] MEDS: GABAPENTIN 300 MG CAP PO SCH ×3 (09:25→16:55)
[2017-02-19 10:40] LABS: AUTOMATED NEUTROPHIL # 6.3 TH/MM3 (1.8-7.7); BASOPHIL # 0.1 TH/MM3 (0-0.2); BASOPHIL % 0.7 % (0.0-2.0); EOSINOPHIL % 0.6 % (0.0-4.0); HEMATOCRIT 22.7 % (35.0-46.0); LYMPH % 12.6 % (9.0-44.0); MEAN CELL VOLUME 63.1 FL (80.0-100.0); MEAN CORPUSCULAR HEMOGLOBIN 19.7 PG (27.0-34.0); MEAN CORPUSCULAR HGB CONC 31.2 % (32.0-36.0); MONO % 6.3 % (0.0-8.0); NEUT % 79.8 % (16.0-70.0); PLATELET COUNT 426 TH/MM3 (150-450); RED BLOOD COUNT 3.61 MIL/MM3 (4.00-5.30); WHITE BLOOD COUNT 7.9 TH/MM3 (4.0-11.0)
[2017-02-19 10:44] LABS: HEMO FLAGS AUTO DIFF
[2017-02-19 11:04] LABS: ANION GAP 7 MEQ/L (5-15); BICARBONATE 29.3 MEQ/L (21.0-32.0); BLOOD UREA NITROGEN 5 MG/DL (7-18); CHLORIDE 99 MEQ/L (98-107); GLOMERULAR FILTRATION RATE 100 ML/MIN (>89); POTASSIUM 4.3 MEQ/L (3.5-5.1); SODIUM (NA) 135 MEQ/L (136-145)
[2017-02-19 11:07] LABS: FERRITIN 5 NG/ML (8-252); TRANSFERRIN IRON PROFILE 340 MG/DL (200-360)
[2017-02-19 12:04] LABS: OVALOCYTES 1+ (NORMAL); SCAN/DIFF AUTO DIFF CONFIRMED
--- NOTE | 2017-02-19 12:24 | EKG ---
Date Performed: 02/18/2017 Time Performed: 21:36:57 PTAGE: 61 years EKG: SINUS TACHYCARDIA NONSPECIFIC T-WAVE ABNORMALITY ABNORMAL RHYTHM ECG NO PREVIOUS TRACING DOCTOR: Mike Cruz Interpretating Date/Time 02/19/2017 12:24:05
--- NOTE | 2017-02-19 14:46 | PD.CONS ---
HPI History of Present Illness This is a 61 year old female who presented to the ED with c/o dizziness and fatigue x 2 days. Patient also reported multiple episodes of emesis. Reports bright red blood in stool for past 2 days. Reports mild epigastric tenderness yesterday. Had Colonoscopy about a year ago in [place] which showed a polyp per patient. She reports she had a EGD about a year ago, as well, but she is unsure of the results. Past medical history is significant for hypertension, hyperlipidemia, diabetes mellitus, and depression. Patient was noted to be anemic in ED with HH 5.4/18.7 (02/18) with tachycardia. PRBC x 3 have been ordered and patient has received 2/3 at this time. HH 7.1/22.7 today. (Maribell Worthy) PFSH Past Medical History Hypertension Hyperlipidemia Type 2 diabetes mellitus Depression Past Surgical History Exploratory laparotomy in 1979 for unclear reasons (Maribell Worthy) Coded Allergies: aspirin (Unverified Allergy, Severe, 01/25/17) N/V ibuprofen (Unverified Allergy, Severe, 01/25/17) N/V Medications Current Medications Medications (Trade) Dose Ordered Sig/Storm Route PRN Reason Start Time Stop Time Status Last Admin Dose Admin Sodium Chloride (NS Flush) 2 ml UNSCH PRN IVF FLUSH AFTER USING IV ACCESS 02/18/17 21:30 Pantoprazole Sodium 80 mg/ Sodium Chloride 100 ml @ 10 mls/hr Q10H IV 02/18/17 21:54 02/19/17 09:21 Sodium Chloride (NS Flush) 2 ml UNSCH PRN IV FLUSH FLUSH AFTER USING IV ACCESS 02/18/17 22:15 Sodium Chloride (NS Flush) 2 ml BID IV FLUSH 02/19/17 09:00 Ondansetron HCl (Zofran Inj) 4 mg Q6H PRN IV PUSH NAUSEA 02/18/17 22:15 Amitriptyline HCl (Elavil) 75 mg HS PO 02/19/17 21:00 Amlodipine Besylate (Norvasc) 10 mg DAILY PO 02/19/17 09:00 02/19/17 09:25 Atorvastatin Calcium (Lipitor) 20 mg HS PO 02/19/17 21:00 Gabapentin (Neurontin) 300 mg TID PO 02/19/17 09:00 02/19/17 12:07 Lamotrigine (LaMICtal) 200 mg BID PO 02/19/17 09:00 02/19/17 09:25 Lisinopril (Prinivil) 10 mg DAILY PO 02/19/17 09:00 02/19/17 09:25 Famotidine (Pepcid) 20 mg DAILY PO 02/19/17 09:00 02/19/17 09:25 Dextrose (D50w (Vial) Inj) 50 ml UNSCH PRN IV PUSH HYPOGLYCEMIA-SEE COMMENTS 02/18/17 22:30 Glucagon (Glucagon Inj) 1 mg UNSCH PRN OTHER HYPOGLYCEMIA-SEE COMMENTS 02/18/17 22:30 Insulin Aspart (NovoLOG SUPPLEMENTAL SCALE) 1 ACHS SLIDING SCALE SQ 02/19/17 08:00 Family History Mother, CAD Social History Tobacco, denies current use, quit in December 2016, smoked for 15 years 1-1/2-2 PPD Alcohol, denies current use. quit in December 2016 Illicit Drugs, denies (Maribell Worthy) Review of Systems Constitutional: COMPLAINS OF: Fatigue, Dizziness, DENIES: Diaphoretic episodes , Fever, Weight gain, Weight loss, Chills, Change in appetite, Night Sweats Endocrine: DENIES: Polydipsia, Polyuria Eyes: DENIES: Blurred vision, Photosensitivity, Double Vision Ears, nose, mouth, throat: DENIES: Hearing loss, Vertigo, Oral lesions, Throat pain, Hoarseness Respiratory: DENIES: Cough, Wheezing, Hemoptysis, Sputum production, Shortness of breath Cardiovascular: DENIES: Chest pain, Palpitations, Syncope, Lower Extremity Edema, Orthopnea, Claudication Gastrointestinal: COMPLAINS OF: Abdominal pain, Bloody stools, DENIES: Black stools, Constipation, Diarrhea, Nausea, Vomiting, Difficulty Swallowing, Anorexia, Odynophagia, Swelling of Abdomen, Heartburn, Hematemesis Genitourinary: DENIES: Urinary frequency, Urinary incontinence, Urgency, Hematuria, Dysuria, Nocturia Musculoskeletal: DENIES: Joint pain, Muscle aches, Stiffness, Joint Swelling, Back pain, Neck pain Integumentary: DENIES: Abnormal pigmentation, Nail changes, Pruritus, Rash, Jaundice Hematologic/lymphatic: DENIES: Bruising, Lymphadenopathy Immunologic/allergic: DENIES: Eczema, Urticaria Neurologic: DENIES: Abnormal gait, Headache, Localized weakness, Paresthesias Psychiatric: DENIES: Anxiety, Confusion, Mood changes, Depression, Agitation, Suicidal Ideation (Maribell Worthy) GI Exam Vitals I&O Vital Signs Date Time Temp Pulse Resp B/P (MAP) Pulse Ox O2 Delivery O2 Flow Rate FiO2 02/19/17 12:15 87 02/19/17 12:00 98.5 88 18 133/66 (88) 93 02/19/17 08:00 98.4 88 18 127/61 (83) 93 02/19/17 08:00 86 02/19/17 05:35 98.1 85 20 123/59 (80) 96 02/19/17 04:45 98.5 87 18 120/58 02/19/17 04:30 98.2 85 18 120/65 94 02/19/17 01:39 98.5 92 18 112/57 98 02/19/17 01:17 98.6 92 18 120/59 93 02/19/17 00:23 98.7 106 20 119/59 (79) 97 02/18/17 21:20 Room Air 02/18/17 21:07 100 18 97 Room Air 02/18/17 20:58 99.0 119 20 159/70 (99) 96 I/O 02/18/17 02/18/17 02/18/17 02/19/17 02/19/17 02/19/17 07:00 15:00 23:00 07:00 15:00 23:00 Intake Total 35 ml 310 ml 300 ml Balance 35 ml 310 ml 300 ml Intake IV Total 35 ml Packed Cells 300 ml 300 ml Blood Product IV Normal Saline Flush 10 ml # Voids 1 Imaging Last Impressions Head CT 02/18/172117 Signed Impressions: Service Date/Time: Saturday, February 18, 2017 21:34 - CONCLUSION: Normal examination for a patient of this age. No significant change has occurred. Geovany Calix MD Laboratory Test 02/18/17 21:05 02/18/17 22:05 02/19/17 08:40 White Blood Count 10.9 TH/MM3 7.9 TH/MM3 Red Blood Count 3.18 MIL/MM3 3.61 MIL/MM3 Hemoglobin 5.4 GM/DL 7.1 GM/DL Hematocrit 18.7 % 22.7 % Mean Corpuscular Volume 58.6 FL 63.1 FL Mean Corpuscular Hemoglobin 17.1 PG 19.7 PG Mean Corpuscular Hemoglobin Concent 29.1 % 31.2 % Red Cell Distribution Width 20.7 % 25.0 % Platelet Count 505 TH/MM3 426 TH/MM3 Mean Platelet Volume 8.8 FL 8.7 FL Neutrophils (%) (Auto) 76.9 % 79.8 % Lymphocytes (%) (Auto) 15.3 % 12.6 % Monocytes (%) (Auto) 6.6 % 6.3 % Eosinophils (%) (Auto) 0.8 % 0.6 % Basophils (%) (Auto) 0.4 % 0.7 % Neutrophils # (Auto) 8.4 TH/MM3 6.3 TH/MM3 Lymphocytes # (Auto) 1.7 TH/MM3 1.0 TH/MM3 Monocytes # (Auto) 0.7 TH/MM3 0.5 TH/MM3 Eosinophils # (Auto) 0.1 TH/MM3 0.0 TH/MM3 Basophils # (Auto) 0.0 TH/MM3 0.1 TH/MM3 CBC Comment AUTO DIFF AUTO DIFF Differential Comment AUTO DIFF CONFIRMED AUTO DIFF CONFIRMED Platelet Estimate HIGH Platelet Morphology Comment ENLARGED Ovalocytes 1+ 1+ Stomatocytes 1+ Prothrombin Time 10.5 SEC Prothromb Time International Ratio 1.0 RATIO Activated Partial Thromboplast Time 23.1 SEC Blood Urea Nitrogen 5 MG/DL 5 MG/DL Creatinine 0.82 MG/DL 0.72 MG/DL Random Glucose 274 MG/DL 269 MG/DL Total Protein 7.9 GM/DL Albumin 3.0 GM/DL Calcium Level 8.5 MG/DL 8.6 MG/DL Magnesium Level 1.5 MG/DL Alkaline Phosphatase 78 U/L Aspartate Amino Transf (AST/SGOT) 10 U/L Alanine Aminotransferase (ALT/SGPT) 15 U/L Total Bilirubin 0.2 MG/DL Sodium Level 135 MEQ/L 135 MEQ/L Potassium Level 4.4 MEQ/L 4.3 MEQ/L Chloride Level 99 MEQ/L 99 MEQ/L Carbon Dioxide Level 25.8 MEQ/L 29.3 MEQ/L Anion Gap 10 MEQ/L 7 MEQ/L Estimat Glomerular Filtration Rate 86 ML/MIN 100 ML/MIN Total Creatine Kinase 50 U/L Troponin I LESS THAN 0.02 NG/ML B-Type Natriuretic Peptide 16 PG/ML Ethyl Alcohol Level LESS THAN 3 MG/DL Ammonia 34 MCMOL/L Iron Level 144 MCG/DL Total Iron Binding Capacity 476 MCG/DL Percent Iron Saturation 30.3 % Ferritin 5 NG/ML Physical Examination HEENT: Normocephalic; atraumatic; no jaundice. Throat is clear. NECK: Neck is supple CHEST: CTA CARDIAC: RRR with no murmur gallop or rubs. ABDOMEN: Soft, nondistended, nontender; no hepatosplenomegaly; bowel sounds are present in all four quadrants. EXTREMITIES: No clubbing, cyanosis, or edema. SKIN: Normal; no rash; no jaundice. GARDE MANAGER: No focal deficits; alert and oriented times three. (Maribell Worthy) Assessment and Plan Plan ASSESSMENT: - Anemia, Hemoccult positive stools. Bright red blood mixed in stool. HH 5.4/ 18.7 on admission. PRBC x 3 ordered, patient has received 2/3 transfusions. HH 7.1/22.7 this morning. Last Colonoscopy 1 year ago in [place], which showed polyp per patient. - Epigastric abdominal pain, improving with associated vomiting. Has had EGD in the past, but she is unsure of results. - Diabetes, hypertension, hyperlipidemia, depression; per attending PLAN: - EGD/Colonoscopy Monday - Obtain consents - Clear liquids today - NPO at [facility] - Bowel prep today - Protonix gtt - Monitor HH, transfuse as necessary - Supportive care - Further recommendations to follow based on results of above Patient seen and examined by Dr. Chinchilla and myself and this note is written on his behalf. (Maribell Worthy) Plan Patient was seen and examined, agree with above-noted, patient has anemia and heme-positive stool with nausea vomiting recommend an upper endoscopy and a colonoscopy for tomorrow meanwhile we'll monitor H&H ensure stability and give packed RBC as needed (Mariluz Chinchilla MD) Maribell Worthy Feb 19, 2017 14:46 Mariluz Chinchilla MD Feb 19, 2017 14:54
[2017-02-19] MEDS ORDERED: PEG (High)/E-LYTE SOLN 4000 ML BTL PO ONE (16:00)
[2017-02-19 16:06] LABS: HEMATOCRIT 24.5 % (35.0-46.0)
[2017-02-19] MEDS: AMITRIPTYLINE HCL 75 MG TAB PO SCH (21:11)
[2017-02-19] MEDS: ATORVASTATIN 20 MG TAB PO SCH (21:12)
[2017-02-20] VITALS (7 sets, daily range): BP systolic 124–181; BP diastolic 57–78; PULSE 89–101; RESP 18–20; TEMP 97.9–99.2; O2SAT 92–99
[2017-02-20] MEDS ORDERED: LACTATED RINGER'S 1000 ML IV PRN (04:00)
[2017-02-20] MEDS ORDERED: POVIDONE IODINE 5% (ANTISEPSIS KIT) 4 APPLICATIONS EACH NARE PRN (04:00)
[2017-02-20] MEDS ORDERED: METOPROLOL TARTRATE 25 MG TAB PO PRN (04:00)
[2017-02-20] MEDS ORDERED: CHLORHEXIDINE GLUCONATE 2 % 1 PACK (2 CLOTHS) TOPICAL PRN (04:00)
[2017-02-20] MEDS ORDERED: SODIUM CHLORID 0.9% 500 ML IV PRN (04:00)
[2017-02-20] MEDS: PANTOPRAZOLE INJ 80 MG in SODIUM CHLORIDE 0.9% INJ 100 ML IV SCH ×3 (04:52→23:54)
--- NOTE | 2017-02-20 07:30 | HHI.PR ---
Subjective Remarks in no acute distress. no nausea, vomiting or abdominal pain. no gross GI bleeding. denies chest pain, sob or dizziness. awaiting EGD/ colonoscopy today. Objective Vitals Vital Signs Date Time Temp Pulse Resp B/P (MAP) Pulse Ox O2 Delivery O2 Flow Rate FiO2 02/20/17 05:04 99.2 98 20 125/57 (79) 95 02/20/17 00:00 98.6 93 20 124/78 (93) 94 02/19/17 20:00 99.3 94 18 138/62 (87) 95 02/19/17 16:36 91 02/19/17 16:00 98.4 91 18 136/68 (90) 93 02/19/17 12:15 87 02/19/17 12:00 98.5 88 18 133/66 (88) 93 02/19/17 08:00 98.4 88 18 127/61 (83) 93 02/19/17 08:00 86 I/O 02/19/17 02/19/17 02/19/17 02/20/17 02/20/17 02/20/17 07:00 15:00 23:00 07:00 15:00 23:00 Intake Total 310 ml 300 ml 100 ml Balance 310 ml 300 ml 100 ml Intake IV Total 100 ml Packed Cells 300 ml 300 ml Blood Product IV Normal Saline Flush 10 ml # Voids 1 3 3 # Bowel Movements 0 1 Result Diagram: 02/19/17 1523 02/19/17 0840 Imaging Last Impressions Head CT 02/18/172117 Signed Impressions: Service Date/Time: Saturday, February 18, 2017 21:34 - CONCLUSION: Normal examination for a patient of this age. No significant change has occurred. Geovany Calix MD Objective Remarks GENERAL: This is a well-nourished, well-developed patient, in no apparent distress. CARDIOVASCULAR: Regular rate and regular rhythm without murmurs, gallops, or rubs. RESPIRATORY: Clear to auscultation. Breath sounds equal bilaterally. No wheezes , rales, or rhonchi. GASTROINTESTINAL: Abdomen soft, non-tender, nondistended. Normal, active bowel sounds MUSCULOSKELETAL: Extremities without clubbing, cyanosis, or edema. NEURO: Alert & Oriented x4 to person, place, time, situation. Moves all ext x4 Medications and IVs Current Medications Sodium Chloride (NS Flush) 2 ml UNSCH PRN IVF FLUSH AFTER USING IV ACCESS; Start 02/18/17 at 21:30 Ondansetron HCl (Zofran Inj) 4 mg ONCE ONCE IV PUSH Last administered on 21:53; Start 02/18/17 at 21:30; Stop 02/18/17 at 21:31; Status DC Sodium Chloride 250 ml @ 15 mls/hr ONCE ONCE IV Last administered on 01:14; Start 02/18/17 at 21:45; Stop 02/19/17 at 14:24; Status DC Pantoprazole Sodium 80 mg/ Sodium Chloride 35 ml @ 420 mls/hr Q5M ONCE IV Last administered on 02/18/17 22:07; Start 02/18/17 at 21:54; Stop 02/18/17 at 21:58; Status DC Pantoprazole Sodium 80 mg/ Sodium Chloride 100 ml @ 10 mls/hr Q10H IV Last administered on 02/20/17 04:52; Start 02/18/17 at 21:54 Sodium Chloride (NS Flush) 2 ml UNSCH PRN IV FLUSH FLUSH AFTER USING IV ACCESS ; Start 02/18/17 at 22:15 Sodium Chloride (NS Flush) 2 ml BID IV FLUSH Last administered on 02/19/17 21 :11; Start 02/19/17 at 09:00 Ondansetron HCl (Zofran Inj) 4 mg Q6H PRN IV PUSH NAUSEA; Start 02/18/17 at 22: 15 Pantoprazole Sodium (Protonix Inj) 40 mg DAILY IV PUSH ; Start 02/19/17 at 09: 00; Stop 02/19/17 at 09:00; Status DC Amitriptyline HCl (Elavil) 75 mg HS PO Last administered on 02/19/17 21:11; Start 02/19/17 at 21:00 Amlodipine Besylate (Norvasc) 10 mg DAILY PO Last administered on 02/19/17 09 :25; Start 02/19/17 at 09:00 Atorvastatin Calcium (Lipitor) 20 mg HS PO Last administered on 02/19/17 21: 12; Start 02/19/17 at 21:00 Gabapentin (Neurontin) 300 mg TID PO Last administered on 02/19/17 16:55; Start 02/19/17 at 09:00 Lamotrigine (LaMICtal) 200 mg BID PO Last administered on 02/19/17 21:11; Start 02/19/17 at 09:00 Lisinopril (Prinivil) 10 mg DAILY PO Last administered on 02/19/17 09:25; Start 02/19/17 at 09:00 Famotidine (Pepcid) 20 mg DAILY PO Last administered on 02/19/17 09:25; Start 02/19/17 at 09:00 Dextrose (D50w (Vial) Inj) 50 ml UNSCH PRN IV PUSH HYPOGLYCEMIA-SEE COMMENTS; Start 02/18/17 at 22:30 Glucagon (Glucagon Inj) 1 mg UNSCH PRN OTHER HYPOGLYCEMIA-SEE COMMENTS; Start 02/18/17 at 22:30 Insulin Aspart (NovoLOG SUPPLEMENTAL SCALE) 1 ACHS SLIDING SCALE SQ Last administered on 02/19/17 21:00; Start 02/19/17 at 08:00 Polyethylene Glycol/ Electrolytes (Colyte Liq) 4,000 ml ONCE ONCE PO Last administered on 02/19/17 16:55; Start 02/19/17 at 16:00; Stop 02/19/17 at 16 :01; Status DC Lactated Ringer's 1,000 ml @ 30 mls/hr Q24H PRN IV SEE LABEL COMMENTS; Start 02/20/17 at 04:00; Stop 02/23/17 at 03:59 Sodium Chloride 500 ml @ 30 mls/hr [id number] PRN IV SEE LABEL COMMENTS; Start at 04:00; Stop 02/23/17 at 03:59 Metoprolol Tartrate (Lopressor) 25 mg IT DATA ARCHITECT PRN PO SEE LABEL COMMENTS; Start 02/20/17 at 04:00; Stop 02/23/17 at 03:59 Povidone Iodine (Betadine 5% Antisepsis Kit) 1 applic IT DATA ARCHITECT PRN EACH NARE SEE LABEL COMMENTS; Start 02/20/17 at 04:00; Stop 02/23/17 at 03:59 Chlorhexidine Gluconate (Chlorhexidine 2% Cloth) 3 pack IT DATA ARCHITECT PRN TOPICAL SEE LABEL COMMENTS; Start 02/20/17 at 04:00; Stop 02/23/17 at 03:59 A/P Assessment and Plan A/P 1. Severe anemia/GI bleed H&H 5.4/18.7 at the time of presentation. Patient with bright red blood mixed in with her stool Protonix ggt Gastroenterology consult appreciated; plan for EGD/ colonoscopy today. Follow CBC Monitor for signs of acute bleed. 2. anemia- acute on chronic due to GI bleed s/p PRBC transfusion- will monitor H/H with further transfusion as needed. iron profile reviewed. 3. Type 2 diabetes mellitus Holding oral anti-hyperglycemics SSI 4. Hypertension/hyperlipidemia Continue home medications 5. Depression Continue home amitriptyline and Lamictal DVT prophylaxis with SCD's- no chemical prophylaxis due to GI bleed. Discharge Planning awaiting endoscopy/ GI recommendations. Mackenzie Hancock MD Feb 20, 2017 07:30
[2017-02-20] MEDS: INSULIN ASPART SUPPLEMENTAL SCALE SQ SCH ×4 (08:00→21:00)
[2017-02-20 08:10] LABS: AUTOMATED NEUTROPHIL # 7.3 TH/MM3 (1.8-7.7); BASOPHIL # 0.1 TH/MM3 (0-0.2); BASOPHIL % 0.5 % (0.0-2.0); EOSINOPHIL # 0.1 TH/MM3 (0-0.4); EOSINOPHIL % 1.1 % (0.0-4.0); HEMATOCRIT 24.8 % (35.0-46.0); LYMPH % 17.7 % (9.0-44.0); LYMPHOCYTE # 1.7 TH/MM3 (1.0-4.8); MEAN CELL VOLUME 63.9 FL (80.0-100.0); MEAN CORPUSCULAR HEMOGLOBIN 18.6 PG (27.0-34.0); MONO % 5.5 % (0.0-8.0); NEUT % 75.2 % (16.0-70.0); PLATELET COUNT 465 TH/MM3 (150-450); RED BLOOD COUNT 3.88 MIL/MM3 (4.00-5.30); RED CELL DISTRIBUTION WIDTH 25.3 % (11.6-17.2); WHITE BLOOD COUNT 9.8 TH/MM3 (4.0-11.0)
[2017-02-20 08:12] LABS: HEMO FLAGS AUTO DIFF; MEAN CORPUSCULAR HGB CONC 29.2 % (32.0-36.0)
[2017-02-20] MEDS: FAMOTIDINE 20 MG TAB PO SCH (08:22)
[2017-02-20] MEDS: lamoTRIgine 100 MG TAB PO SCH ×2 (08:22→22:43)
[2017-02-20] MEDS: LISINOPRIL 10 MG TAB PO SCH (08:22)
[2017-02-20] MEDS: GABAPENTIN 300 MG CAP PO SCH ×3 (08:22→16:07)
[2017-02-20] MEDS: SODIUM CHLORIDE 0.9% FLUSH 10 ML FLUSH IV FLUSH SCH ×2 (08:22→22:44)
[2017-02-20 09:03] LABS: SCAN/DIFF AUTO DIFF CONFIRMED
[2017-02-20] MEDS ORDERED: LIDOCAINE HCL 1% PF 5 ML SYRINGE OTHER ONE (12:00)
[2017-02-20] MEDS ORDERED: PROPOFOL 200 MG/20 ML AMP IV ONE (12:00)
[2017-02-20] MEDS ORDERED: PEG (High)/E-LYTE SOLN 4000 ML BTL PO ONE (14:00)
[2017-02-20] MEDS ORDERED: DO NOT ADM ANY ANTICOAGULANT DRUGS PRN (14:02)
--- NOTE | 2017-02-20 14:08 | PD.PROCEDR ---
GI Procedure REFERRING PHYSICIAN Cheryl PROCEDURE PERFORMED EGD followed by an incomplete colonoscopy due to poor prep INDICATION FOR PROCEDURE Anemia, epigastric pain, rectal bleeding PROCEDURE: The procedure, risks and benefits were discussed with Ms. Leone and informed consent was obtained. Anesthesia sedated her with Diprivan. She was placed in the left lateral decubitus position. EGD: The Pentax videoscope was introduced through the oropharynx and advanced to the second portion of the duodenum under direct visualization. Retroflexion was performed in the stomach. FINDINGS: The esophagus this appeared to be unremarkable within normal limits The stomach this appeared to be unremarkable and within normal limits The duodenum this appeared to be unremarkable with normal limits Colonoscopy: The Pentax videoscope was introduced through the rectum and advanced to the ascending colon. Retroflexion was performed in the rectum. Colonic prep was poor FINDINGS: This was an incomplete colonoscopy due to poor prep what little mucosa that was seen was unremarkable with normal limits ESTIMATED BLOOD LOSS: None SPECIMENS REMOVED: None COMPLICATIONS: None IMPRESSION: Anemia Rectal bleeding Epigastric pain PLAN: We will repeat colonoscopy tomorrow with additional prep Continue with current supportive care Kameron Hernández MD Feb 20, 2017 14:08
[2017-02-20 16:17] LABS: HEMATOCRIT 25.8 % (35.0-46.0)
[2017-02-20] MEDS ORDERED: ENALAPRILAT 1.25 MG/ML VIAL IV PUSH PRN (16:30)
[2017-02-20] MEDS: AMITRIPTYLINE HCL 75 MG TAB PO SCH (22:43)
[2017-02-20] MEDS: ATORVASTATIN 20 MG TAB PO SCH (22:43)
[2017-02-21] VITALS (9 sets, daily range): BP systolic 112–153; BP diastolic 56–92; PULSE 84–101; RESP 18–22; TEMP 98.2–99.2; O2SAT 91–97
[2017-02-21] MEDS: INSULIN ASPART SUPPLEMENTAL SCALE SQ SCH ×4 (08:00→21:30)
[2017-02-21 08:08] LABS: HEMATOCRIT 23.4 % (35.0-46.0); MEAN CELL VOLUME 62.7 FL (80.0-100.0); MEAN CORPUSCULAR HEMOGLOBIN 18.9 PG (27.0-34.0); MEAN CORPUSCULAR HGB CONC 30.2 % (32.0-36.0); PLATELET COUNT 392 TH/MM3 (150-450); RED BLOOD COUNT 3.73 MIL/MM3 (4.00-5.30); RED CELL DISTRIBUTION WIDTH 26.2 % (11.6-17.2); WHITE BLOOD COUNT 8.6 TH/MM3 (4.0-11.0)
[2017-02-21 08:09] LABS: REVIEW FLAG FINAL
--- NOTE | 2017-02-21 09:01 | HHI.PR ---
Subjective Remarks in no acute distress. no active bleed. slightly tachycardic. no nausea, vomiting or abdominal pain. awaiting colonoscopy. Objective Vitals Vital Signs Date Time Temp Pulse Resp B/P (MAP) Pulse Ox O2 Delivery O2 Flow Rate FiO2 02/21/17 08:00 98.5 96 18 138/62 (87) 92 02/21/17 04:30 86 02/21/17 04:00 98.4 98 18 153/92 (112) 96 02/21/17 00:00 98.2 88 18 112/56 (74) 91 02/20/17 20:30 98 02/20/17 20:00 97.9 90 18 156/72 (100) 96 02/20/17 16:00 98.9 91 18 181/72 (108) 94 02/20/17 16:00 89 02/20/17 15:51 99 21 02/20/17 14:10 86 16 140/70 (93) 92 Room Air 02/20/17 14:04 98.6 88 16 145/80 (101) 95 I/O 02/20/17 02/20/17 02/20/17 02/21/17 02/21/17 02/21/17 07:00 15:00 23:00 07:00 15:00 23:00 Intake Total 100 ml 700 ml Balance 100 ml 700 ml Intake IV Total 100 ml Other 700 ml # Voids 3 # Bowel Movements 1 Result Diagram: 02/21/17 0710 02/19/17 0840 Imaging Last Impressions Head CT 02/18/172117 Signed Impressions: Service Date/Time: Saturday, February 18, 2017 21:34 - CONCLUSION: Normal examination for a patient of this age. No significant change has occurred. Geovany Calix MD Objective Remarks GENERAL: This is a well-nourished, well-developed patient, in no apparent distress. CARDIOVASCULAR: Regular rate and mildly tachycardic. RESPIRATORY: Clear to auscultation. Breath sounds equal bilaterally. No wheezes , rales, or rhonchi. GASTROINTESTINAL: Abdomen soft, non-tender, nondistended. Normal, active bowel sounds MUSCULOSKELETAL: Extremities without clubbing, cyanosis, or edema. NEURO: Alert & Oriented x4 to person, place, time, situation. Moves all ext x4 Medications and IVs Current Medications Sodium Chloride (NS Flush) 2 ml UNSCH PRN IVF FLUSH AFTER USING IV ACCESS; Start 02/18/17 at 21:30; Stop 02/20/17 at 15:13; Status DC Ondansetron HCl (Zofran Inj) 4 mg ONCE ONCE IV PUSH Last administered on 21:53; Start 02/18/17 at 21:30; Stop 02/18/17 at 21:31; Status DC Sodium Chloride 250 ml @ 15 mls/hr ONCE ONCE IV Last administered on 01:14; Start 02/18/17 at 21:45; Stop 02/19/17 at 14:24; Status DC Pantoprazole Sodium 80 mg/ Sodium Chloride 35 ml @ 420 mls/hr Q5M ONCE IV Last administered on 02/18/17 22:07; Start 02/18/17 at 21:54; Stop 02/18/17 at 21:58; Status DC Pantoprazole Sodium 80 mg/ Sodium Chloride 100 ml @ 10 mls/hr Q10H IV Last administered on 02/20/17 04:52; Start 02/18/17 at 21:54 Sodium Chloride (NS Flush) 2 ml UNSCH PRN IV FLUSH FLUSH AFTER USING IV ACCESS ; Start 02/18/17 at 22:15 Sodium Chloride (NS Flush) 2 ml BID IV FLUSH Last administered on 02/20/17 22 :44; Start 02/19/17 at 09:00 Ondansetron HCl (Zofran Inj) 4 mg Q6H PRN IV PUSH NAUSEA; Start 02/18/17 at 22: 15 Pantoprazole Sodium (Protonix Inj) 40 mg DAILY IV PUSH ; Start 02/19/17 at 09: 00; Stop 02/19/17 at 09:00; Status DC Amitriptyline HCl (Elavil) 75 mg HS PO Last administered on 02/20/17 22:43; Start 02/19/17 at 21:00 Amlodipine Besylate (Norvasc) 10 mg DAILY PO Last administered on 02/20/17 08 :22; Start 02/19/17 at 09:00 Atorvastatin Calcium (Lipitor) 20 mg HS PO Last administered on 02/20/17 22: 43; Start 02/19/17 at 21:00 Gabapentin (Neurontin) 300 mg TID PO Last administered on 02/20/17 16:07; Start 02/19/17 at 09:00 Lamotrigine (LaMICtal) 200 mg BID PO Last administered on 02/20/17 22:43; Start 02/19/17 at 09:00 Lisinopril (Prinivil) 10 mg DAILY PO Last administered on 02/20/17 08:22; Start 02/19/17 at 09:00 Famotidine (Pepcid) 20 mg DAILY PO Last administered on 02/20/17 08:22; Start 02/19/17 at 09:00 Dextrose (D50w (Vial) Inj) 50 ml UNSCH PRN IV PUSH HYPOGLYCEMIA-SEE COMMENTS; Start 02/18/17 at 22:30 Glucagon (Glucagon Inj) 1 mg UNSCH PRN OTHER HYPOGLYCEMIA-SEE COMMENTS; Start 02/18/17 at 22:30 Insulin Aspart (NovoLOG SUPPLEMENTAL SCALE) 1 ACHS SLIDING SCALE SQ Last administered on 02/20/17 21:00; Start 02/19/17 at 08:00 Polyethylene Glycol/ Electrolytes (Colyte Liq) 4,000 ml ONCE ONCE PO Last administered on 02/19/17 16:55; Start 02/19/17 at 16:00; Stop 02/19/17 at 16 :01; Status DC Lactated Ringer's 1,000 ml @ 30 mls/hr Q24H PRN IV SEE LABEL COMMENTS; Start 02/20/17 at 04:00; Stop 02/23/17 at 03:59 Sodium Chloride 500 ml @ 30 mls/hr [id number] PRN IV SEE LABEL COMMENTS; Start at 04:00; Stop 02/23/17 at 03:59 Metoprolol Tartrate (Lopressor) 25 mg CLIENT RELATIONS SPECIALIST PRN PO SEE LABEL COMMENTS; Start 02/20/17 at 04:00; Stop 02/23/17 at 03:59 Povidone Iodine (Betadine 5% Antisepsis Kit) 1 applic CLIENT RELATIONS SPECIALIST PRN EACH NARE SEE LABEL COMMENTS; Start 02/20/17 at 04:00; Stop 02/23/17 at 03:59 Chlorhexidine Gluconate (Chlorhexidine 2% Cloth) 3 pack CLIENT RELATIONS SPECIALIST PRN TOPICAL SEE LABEL COMMENTS; Start 12/11/17 at 04:00; Stop 02/23/17 at 03:59 Polyethylene Glycol/ Electrolytes (Colyte Liq) 4,000 ml ONCE ONCE PO Last administered on 02/20/17 16:07; Start 02/20/17 at 14:00; Stop 02/20/17 at 14 :07; Status DC Miscellaneous Information ALL NURSING DEPARTME... UNSCH PRN .XX SEE LABEL COMMENTS; Start 02/20/17 at 14:02; Stop 02/21/17 at 14:01 Enalaprilat (Vasotec Inj) 1.25 mg Q8H PRN IV PUSH SBP> OR = 180, DBP> OR = 100 Last administered on 02/20/17 17:13; Start 02/20/17 at 16:30 A/P Assessment and Plan A/P 1. Severe anemia/GI bleed H&H 5.4/18.7 at the time of presentation. Patient with bright red blood mixed in with her stool Protonix ggt Gastroenterology consult appreciated; s/p EGD which was unremarkable- colonoscopy will be repeated today since it was a poor prep. Monitor for signs of acute bleed. 2. anemia- acute on chronic due to GI bleed s/p PRBC transfusion- with some drop in H/H- patient is mildly tachycardic- will transfuse with one more unit of PRBC today. monitor H/H. iron profile reviewed. 3. Type 2 diabetes mellitus Holding oral anti-hyperglycemics SSI 4. Hypertension/hyperlipidemia Continue home medications 5. Depression Continue home amitriptyline and Lamictal DVT prophylaxis with SCD's- no chemical prophylaxis due to GI bleed. Discharge Planning discharge home within the next 24 hrs- if H/H stable and cleared by GI. Mackenzie Hancock MD Feb 21, 2017 09:01
[2017-02-21] MEDS ORDERED: FERR325T18 PO (09:04)
[2017-02-21] MEDS: GABAPENTIN 300 MG CAP PO SCH ×3 (09:26→18:04)
[2017-02-21] MEDS: lamoTRIgine 100 MG TAB PO SCH ×2 (09:26→21:29)
[2017-02-21] MEDS: FAMOTIDINE 20 MG TAB PO SCH (09:26)
[2017-02-21] MEDS: LISINOPRIL 10 MG TAB PO SCH (09:27)
[2017-02-21] MEDS: SODIUM CHLORIDE 0.9% FLUSH 10 ML FLUSH IV FLUSH SCH ×2 (09:36→21:36)
[2017-02-21] MEDS: PANTOPRAZOLE INJ 80 MG in SODIUM CHLORIDE 0.9% INJ 100 ML IV SCH ×2 (09:54→21:34)
[2017-02-21] MEDS ORDERED: PROPOFOL 200 MG/20 ML AMP IV ONE (12:00)
[2017-02-21] MEDS ORDERED: LIDOCAINE HCL 1% PF 5 ML SYRINGE OTHER ONE (12:00)
--- NOTE | 2017-02-21 14:36 | PD.PROCEDR ---
GI Procedure REFERRING PHYSICIAN BINDU PROCEDURE PERFORMED Colonoscopy INDICATION FOR PROCEDURE Rectal bleeding PROCEDURE: The procedure, risks and benefits were discussed with Ms. Leone and informed consent was obtained. Anesthesia sedated her with Diprivan. She was placed in the left lateral decubitus position. Colonoscopy: The Pentax videoscope was introduced through the rectum and advanced to the cecum where the ileocecal valve and appendiceal orifice were identified. Retroflexion was performed in the rectum. Colonic prep was good FINDINGS: Colonic withdrawal time greater than 6 minutes as the scope was slowly withdrawn colonic mucosa was carefully inspected this was noted to be unremarkable and within normal limits although the way through so was retroflexion and rectal examination ESTIMATED BLOOD LOSS: None SPECIMENS REMOVED: None COMPLICATIONS: None IMPRESSION: Normal colonoscopy PLAN: High-fiber diet Colonoscopy in 10 years No further workup from a GI standpoint we will sign off Kameron Hernández MD Feb 21, 2017 14:36
[2017-02-21] MEDS: AMITRIPTYLINE HCL 75 MG TAB PO SCH (21:29)
[2017-02-21] MEDS: ATORVASTATIN 20 MG TAB PO SCH (21:29)
[2017-02-22] VITALS: BP 121/63; PULSE 82; RESP 18; TEMP 97.7; O2SAT 97
[2017-02-22 01:30] VITALS: BP 132/66; PULSE 94; RESP 20; TEMP 98.4; O2SAT 96
[2017-02-22 04:00] VITALS: BP 133/65; PULSE 88; RESP 18; TEMP 98.2; O2SAT 91
--- NOTE | 2017-02-22 07:55 | HHI.PR ---
Subjective Remarks in no acute distress. denies pain. no GI bleed. d/w the RN and no acute issues over night. Objective Vitals Vital Signs Date Time Temp Pulse Resp B/P (MAP) Pulse Ox O2 Delivery O2 Flow Rate FiO2 02/22/17 04:00 98.2 88 18 133/65 (87) 91 02/22/17 01:30 98.4 94 20 132/66 (88) 96 02/22/17 00:00 97.7 82 18 121/63 (82) 97 02/21/17 23:16 98.2 89 20 137/65 (89) 94 02/21/17 23:01 84 22 143/64 93 02/21/17 20:00 98.7 93 18 131/77 (95) 96 02/21/17 20:00 88 02/21/17 16:00 99.2 101 18 112/69 (83) 97 02/21/17 14:15 87 18 147/89 (108) 92 Room Air 02/21/17 10:00 101 02/21/17 08:00 98.5 96 18 138/62 (87) 92 I/O 02/21/17 02/21/17 02/21/17 02/22/17 02/22/17 02/22/17 06:59 14:59 22:59 06:59 14:59 22:59 Intake Total 300 ml 420 ml Balance 300 ml 420 ml Packed Cells 400 ml Blood Product IV Normal Saline Flush 20 ml Other 300 ml # Voids 2 3 Result Diagram: 02/21/17 0710 02/19/17 0840 Imaging Last Impressions Head CT 02/18/172117 Signed Impressions: Service Date/Time: Saturday, February 18, 2017 21:34 - CONCLUSION: Normal examination for a patient of this age. No significant change has occurred. Geovany Calix MD Objective Remarks GENERAL: This is a well-nourished, well-developed patient, in no apparent distress. CARDIOVASCULAR: Regular rate and mildly tachycardic. RESPIRATORY: Clear to auscultation. Breath sounds equal bilaterally. No wheezes , rales, or rhonchi. GASTROINTESTINAL: Abdomen soft, non-tender, nondistended. Normal, active bowel sounds MUSCULOSKELETAL: Extremities without clubbing, cyanosis, or edema. NEURO: Alert & Oriented x4 to person, place, time, situation. Moves all ext x4 Procedures EGD/ colonoscopy Medications and IVs Inpatient Medications Amitriptyline HCl (Elavil) 75 mg HS PO Last administered on 02/21/17 21:29; Start 02/19/17 at 21:00 Amlodipine Besylate (Norvasc) 10 mg DAILY PO Last administered on 02/21/17 09 :26; Start 02/19/17 at 09:00 Atorvastatin Calcium (Lipitor) 20 mg HS PO Last administered on 02/21/17 21: 29; Start 02/19/17 at 21:00 Chlorhexidine Gluconate (Chlorhexidine 2% Cloth) 3 pack [employer] PRN TOPICAL SEE LABEL COMMENTS; Start 02/20/17 at 04:00; Stop 02/23/17 at 03:59 Dextrose (D50w (Vial) Inj) 50 ml UNSCH PRN IV PUSH HYPOGLYCEMIA-SEE COMMENTS; Start 02/18/17 at 22:30 Enalaprilat (Vasotec Inj) 1.25 mg Q8H PRN IV PUSH SBP> OR = 180, DBP> OR = 100 Last administered on 02/20/17 17:13; Start 02/20/17 at 16:30 Famotidine (Pepcid) 20 mg DAILY PO Last administered on 02/21/17 09:26; Start 02/19/17 at 09:00 Gabapentin (Neurontin) 300 mg TID PO Last administered on 02/21/17 18:04; Start 02/19/17 at 09:00 Glucagon (Glucagon Inj) 1 mg UNSCH PRN OTHER HYPOGLYCEMIA-SEE COMMENTS; Start 02/18/17 at 22:30 Insulin Aspart (NovoLOG SUPPLEMENTAL SCALE) 1 ACHS SLIDING SCALE SQ Last administered on 02/21/17 21:30; Start 02/19/17 at 08:00 Lactated Ringer's 1,000 ml @ 30 mls/hr Q24H PRN IV SEE LABEL COMMENTS; Start 02/20/17 at 04:00; Stop 02/23/17 at 03:59 Lamotrigine (LaMICtal) 200 mg BID PO Last administered on 02/21/17 21:29; Start 02/19/17 at 09:00 Lisinopril (Prinivil) 10 mg DAILY PO Last administered on 02/21/17 09:27; Start 02/19/17 at 09:00 Metoprolol Tartrate (Lopressor) 25 mg [employer] PRN PO SEE LABEL COMMENTS; Start 02/20/17 at 04:00; Stop 02/23/17 at 03:59 Miscellaneous Information ALL NURSING DEPARTME... UNSCH PRN .XX SEE LABEL COMMENTS; Start 02/20/17 at 14:02; Stop 02/21/17 at 14:01; Status DC Ondansetron HCl (Zofran Inj) 4 mg Q6H PRN IV PUSH NAUSEA; Start 02/18/17 at 22: 15 Pantoprazole Sodium (Protonix Inj) 40 mg DAILY IV PUSH ; Start 02/19/17 at 09: 00; Stop 02/19/17 at 09:00; Status DC Pantoprazole Sodium 80 mg/ Sodium Chloride 100 ml @ 10 mls/hr Q10H IV Last administered on 02/21/17 21:34; Start 02/18/17 at 21:54 Polyethylene Glycol/ Electrolytes (Colyte Liq) 4,000 ml ONCE ONCE PO Last administered on 02/20/17 16:07; Start 02/20/17 at 14:00; Stop 02/20/17 at 14 :07; Status DC Povidone Iodine (Betadine 5% Antisepsis Kit) 1 applic [employer] PRN EACH NARE SEE LABEL COMMENTS; Start 02/20/17 at 04:00; Stop 02/23/17 at 03:59 Sodium Chloride 500 ml @ 30 mls/hr [id number] PRN IV SEE LABEL COMMENTS; Start at 04:00; Stop 02/23/17 at 03:59 Sodium Chloride (NS Flush) 2 ml BID IV FLUSH Last administered on 02/21/17 21 :36; Start 02/19/17 at 09:00 A/P Assessment and Plan A/P 1. Severe anemia/GI bleed H&H 5.4/18.7 at the time of presentation. Patient with bright red blood mixed in with her stool Gastroenterology consult appreciated; s/p EGD/ colonoscopy which was unremarkable- dc heparin drip. GI signed off. Monitor for signs of acute bleed. 2. anemia- acute on chronic due to GI bleed s/p PRBC transfusion- monitor H/H. iron profile reviewed. 3. Type 2 diabetes mellitus Holding oral anti-hyperglycemics SSI 4. Hypertension/hyperlipidemia Continue home medications 5. Depression Continue home amitriptyline and Lamictal DVT prophylaxis with SCD's- no chemical prophylaxis due to GI bleed. Discharge Planning dc home today- pending repeated H/H. see med list. f/u; pcp. d/w the patient and RN. Mackenzie Hancock MD Feb 22, 2017 07:55
[2017-02-22] MEDS ORDERED: FERR325T18 PO (07:57)
[2017-02-22 08:00] VITALS: BP 148/69; PULSE 87; RESP 18; TEMP 97.7; O2SAT 95
[2017-02-22] MEDS: INSULIN ASPART SUPPLEMENTAL SCALE SQ SCH (08:00)
--- NOTE | 2017-02-22 08:02 | HHI.DS ---
Discharge Summary Admission Date Feb 18, 2017 at 22:17 Discharge Date: Feb 22, 2017 Admitting Diagnosis GI bleed w/ anemia (1) GI bleed ICD Code: K92.2 - Gastrointestinal hemorrhage, unspecified Diagnosis: Principal Status: Acute (2) Anemia ICD Code: D64.9 - Anemia, unspecified Diagnosis: Principal Status: Acute Procedures EGD/ colonoscopy Brief History - From Admission 61-year-old female with past medical history significant for hypertension, hyperlipidemia, diabetes mellitus and depression presents with dizziness and fatigue 2 days. The patient also reports multiple episodes of emesis today. She denies any fever/chills. She reports bright red blood in her stool for the past 2 days. She had a transfusion with a colonoscopy approximately one year ago in [place]. States the colonoscopy was significant only for a polyp which was removed. H&H was found to be 5.4/18.7. She was tachycardic on arrival to [facility]. CBC/BMP: 02/21/17 0710 02/19/17 0840 Significant Findings Laboratory Tests Test 02/19/17 08:40 02/19/17 15:23 02/20/17 05:45 02/20/17 15:01 Red Blood Count 3.61 MIL/MM3 (4.00-5.30) 3.88 MIL/MM3 (4.00-5.30) Hemoglobin 7.1 GM/DL (11.6-15.3) 7.4 GM/DL (11.6-15.3) 7.2 GM/DL (11.6-15.3) 7.7 GM/DL (11.6-15.3) Hematocrit 22.7 % (35.0-46.0) 24.5 % (35.0-46.0) 24.8 % (35.0-46.0) 25.8 % (35.0-46.0) Mean Corpuscular Volume 63.1 FL (80.0-100.0) 63.9 FL (80.0-100.0) Mean Corpuscular Hemoglobin 19.7 PG (27.0-34.0) 18.6 PG (27.0-34.0) Mean Corpuscular Hemoglobin Concent 31.2 % (32.0-36.0) 29.2 % (32.0-36.0) Red Cell Distribution Width 25.0 % (11.6-17.2) 25.3 % (11.6-17.2) Neutrophils (%) (Auto) 79.8 % (16.0-70.0) 75.2 % (16.0-70.0) Ovalocytes 1+ (NORMAL) Blood Urea Nitrogen 5 MG/DL (7-18) Random Glucose 269 MG/DL (74-106) Sodium Level 135 MEQ/L (136-145) Total Iron Binding Capacity 476 MCG/DL (250-450) Ferritin 5 NG/ML (8-252) Platelet Count 465 TH/MM3 (150-450) Test 02/21/17 07:10 Red Blood Count 3.73 MIL/MM3 (4.00-5.30) Hemoglobin 7.1 GM/DL (11.6-15.3) Hematocrit 23.4 % (35.0-46.0) Mean Corpuscular Volume 62.7 FL (80.0-100.0) Mean Corpuscular Hemoglobin 18.9 PG (27.0-34.0) Mean Corpuscular Hemoglobin Concent 30.2 % (32.0-36.0) Red Cell Distribution Width 26.2 % (11.6-17.2) Imaging Last Impressions Head CT 02/18/172117 Signed Impressions: Service Date/Time: Saturday, February 18, 2017 21:34 - CONCLUSION: Normal examination for a patient of this age. No significant change has occurred. Geovany Calix MD PE at Discharge GENERAL: This is a well-nourished, well-developed patient, in no apparent distress. CARDIOVASCULAR: Regular rate and mildly tachycardic. RESPIRATORY: Clear to auscultation. Breath sounds equal bilaterally. No wheezes , rales, or rhonchi. GASTROINTESTINAL: Abdomen soft, non-tender, nondistended. Normal, active bowel sounds MUSCULOSKELETAL: Extremities without clubbing, cyanosis, or edema. NEURO: Alert & Oriented x4 to person, place, time, situation. Moves all ext x4 Hospital Course patient was admitted with anemia. she was evaluated by GI and underwent EGD/ colonoscopy which were unremarkable. GI signed off. she was transfused with PRBC for the anemia with improved H/H. she will be discharged home with f/u with her PCP. Pt Condition on Discharge: Fair Discharge Disposition: Discharge Home Discharge Time: <= 30 minutes Discharge Instructions DIET: Follow Instructions for: Heart Healthy Diet, Diabetic Diet Activities you can perform: Regular-No Restrictions Follow up Referrals: PCP Follow-up New Medications: Ferrous Sulfate (Ferrous Sulfate) 325 Mg (65 Mg Iron) Tablet 325 MG PO DAILY for Nutritional Supplement for 30 Days, TAB 0 Refills Continued Medications: Amitriptyline (Amitriptyline) 75 Mg Tab 75 MG PO HS, TAB Amlodipine (Amlodipine) 10 Mg Tab 10 MG PO DAILY for Blood Pressure Management, #30 TAB 0 Refills Atorvastatin (Atorvastatin) 20 Mg Tab 20 MG PO HS for Cholesterol Management, #30 TAB 0 Refills Gabapentin (Gabapentin) 300 Mg Cap 300 MG PO TID, #90 CAP 0 Refills Glipizide (Glipizide) 5 Mg Tab 5 MG PO BIDAC for Blood Sugar Management, #60 TAB 0 Refills Take 30 minutes before a meal Lamotrigine (Lamotrigine) 200 Mg Tab 200 MG PO BID for Control Seizures, #60 TAB 0 Refills Lisinopril (Lisinopril) 10 Mg Tab 10 MG PO DAILY, #30 TAB 0 Refills Metformin (Metformin) 1,000 Mg Tab 1000 MG PO BIDPC for Blood Sugar Management, #60 TAB 0 Refills Ranitidine (Ranitidine) 150 Mg Tab 150 MG PO DAILY for Heartburn Management, #30 TAB 0 Refills Mackenzie Hancock MD Feb 22, 2017 08:02
[2017-02-22] MEDS: LISINOPRIL 10 MG TAB PO SCH (08:05)
[2017-02-22] MEDS: GABAPENTIN 300 MG CAP PO SCH (08:05)
[2017-02-22] MEDS: FAMOTIDINE 20 MG TAB PO SCH (08:06)
[2017-02-22] MEDS: lamoTRIgine 100 MG TAB PO SCH (08:06)
[2017-02-22] MEDS: SODIUM CHLORIDE 0.9% FLUSH 10 ML FLUSH IV FLUSH SCH (08:30)
[2017-02-22 10:49] LABS: HEMATOCRIT 27.9 % (35.0-46.0); MEAN CELL VOLUME 66.4 FL (80.0-100.0); MEAN CORPUSCULAR HEMOGLOBIN 20.4 PG (27.0-34.0); MEAN CORPUSCULAR HGB CONC 30.7 % (32.0-36.0); PLATELET COUNT 391 TH/MM3 (150-450); RED BLOOD COUNT 4.21 MIL/MM3 (4.00-5.30); RED CELL DISTRIBUTION WIDTH 28.3 % (11.6-17.2); WHITE BLOOD COUNT 7.8 TH/MM3 (4.0-11.0)
[2017-02-22 10:55] LABS: REVIEW FLAG FINAL
[2017-02-22 12:00] VITALS: O2SAT 95
== END 2017-02-22 15:06 | disposition home or self-care (01) | DRG 812 ==
LOC: NEPC 20:50 → NEDA 22:17 → N05A 23:40
PROVIDERS: ADMIT Internal Medicine; ATTEND Internal Medicine
PROC: 30233N1 Transfusion of Nonautologous Red Blood Cells into Peripheral Vein, Percutaneous Approach (ICD-10-PCS; principal; 2017-02-19)
PROC: 0DJD8ZZ Inspection of Lower Intestinal Tract, Via Natural or Artificial Opening Endoscopic (ICD-10-PCS; 2017-02-20)
PROC: 0DJ08ZZ Inspection of Upper Intestinal Tract, Via Natural or Artificial Opening Endoscopic (ICD-10-PCS; 2017-02-20 13:25)
PROC: 0DJD8ZZ Inspection of Lower Intestinal Tract, Via Natural or Artificial Opening Endoscopic (ICD-10-PCS; 2017-02-21)
DX: D62 Acute posthemorrhagic anemia (principal); I10 Essential (primary) hypertension; K92.1 Melena; D50.0 Iron deficiency anemia secondary to blood loss (chronic); E78.5 Hyperlipidemia, unspecified; F32.9 Major depressive disorder, single episode, unspecified; E11.9 Type 2 diabetes mellitus without complications; Z79.84 Long term (current) use of oral hypoglycemic drugs; R10.13 Epigastric pain; R00.0 Tachycardia, unspecified; J44.9 Chronic obstructive pulmonary disease, unspecified; Z87.891 Personal history of nicotine dependence
CPT/HCPCS: 36430; 70450; 80048; 80053; 80307; 82140; 82550; 82728; 82948; 83540; 83550; 83735; 83880; 84484; 85014; 85018; 85025; 85027; 85610; 85730; 86850; 86900; 86901; 86920; 93005; 96374; 96375; C9113; J1815; J2405; J7050; P9016

== ENCOUNTER 2017-02-24 08:08 | Emergency (ER) | payer MEDICAID ==
[~2017-02-24 08:08] MED LIST changes: +FERR325T18 PO; +LAMO200T PO; -TYLETAB34 PO
[2017-02-24 08:11] VITALS: BP 190/90; PULSE 89; RESP 18; TEMP 97.8; O2SAT 100
--- NOTE | 2017-02-24 08:20 | PD ---
HPI Chief Complaint: Musculoskeletal Complaint Time Seen by Provider: 08:18 Travel History International Travel<30 days: No Contact w/Intl Traveler<30days: No Traveled to known affect area: No History of Present Illness HPI 61-year-old female patient presents to the ER today, was admitted for GI bleed last week, and had been released 2 days ago, and now is noticing a right forearm area of tenderness, swelling, and had talked her primary care doctor, they're concerned about a possible thrombosis. She denies any chest pains, shortness of breath, or any other symptoms. Modifying Factors: None Associated Signs & Symptoms: Forearm area of swelling, tenderness, close to previous IV site Risk Factors: Admitted for GI bleed last week, IVs PFSH Past Medical History Hx Anticoagulant Therapy: Yes Asthma: No Blood Disorders: No Anxiety: Yes Depression: Yes Heart Rhythm Problems: Yes (RAPID HEARTBEAT) Cancer: No Cardiovascular Problems: Yes (HTN, high cholesterol) High Cholesterol: Yes Chemotherapy: No Chest Pain: No Congestive Heart Failure: No COPD: Yes Diabetes: Yes Diminished Hearing: No Endocrine: Yes Genitourinary: No Hypertension: Yes Immune Disorder: No Musculoskeletal: Yes (ARTHRITIS, GENERALIZED WEAKNESS, SPUR LEFT FT) Neurologic: Yes (TREMORS) Psychiatric: Yes Reproductive: No Respiratory: Yes Radiation Therapy: No Sleep Apnea: Yes Thyroid Disease: No Menopausal: Yes : 4 Para: 3 Miscarriage: 1 : 0 Past Surgical History Other Surgery: Yes (colonoscopy ) Social History Alcohol Use: No Tobacco Use: No Substance Use: No Allergies-Medications (Allergen,Severity, Reaction): Coded Allergies: aspirin (Verified Allergy, Severe, 02/24/17) N/V ibuprofen (Verified Allergy, Severe, 02/24/17) N/V Reported Meds & Prescriptions Reported Meds & Active Scripts Active Ferrous Sulfate 325 Mg (65 Mg Iron) Tablet 325 Mg PO DAILY 30 Days Reported Lamotrigine 200 Mg Tab 200 Mg PO BID Atorvastatin (Atorvastatin Calcium) 20 Mg Tab 20 Mg PO HS Ranitidine (Ranitidine HCl) 150 Mg Tab 150 Mg PO DAILY Amlodipine (Amlodipine Besylate) 10 Mg Tab 10 Mg PO DAILY Lisinopril 10 Mg Tab 10 Mg PO DAILY Metformin (Metformin HCl) 1,000 Mg Tab 1,000 Mg PO BIDPC Gabapentin 300 Mg Cap 300 Mg PO TID Amitriptyline (Amitriptyline HCl) 75 Mg Tab 75 Mg PO HS Glipizide 5 Mg Tab 5 Mg PO BIDAC Take 30 minutes before a meal Review of Systems Except as stated in HPI: all other systems reviewed are Neg Physical Exam Narrative GENERAL: Well-nourished, well-developed elderly -Chinese female patient in no acute distress. Awake and oriented 3. SKIN: Focused skin assessment warm/dry. HEAD: Normocephalic. EYES: No scleral icterus. No injection or drainage. NECK: Supple, trachea midline. No JVD or lymphadenopathy. CARDIOVASCULAR: Regular rate and rhythm without murmurs, gallops, or rubs. RESPIRATORY: Breath sounds equal bilaterally. No accessory muscle use. GASTROINTESTINAL: Abdomen soft, non-tender, nondistended. MUSCULOSKELETAL: No cyanosis, or edema. EXTREMITIES: No clubbing, cyanosis, or edema. No joint tenderness, effusion, or edema noted. There is a palpable cord notable in the right forearm radially, mildly erythematous and tender to palpation without underlying fluctuance. NEUROLOGICAL: Awake and alert. Cranial nerves II through XII intact. Motor and sensory grossly within normal limits. Five out of 5 muscle strength in all muscle groups. Normal speech. BACK: Nontender without obvious deformity. No CVA tenderness. Data Data Last Documented VS Vital Signs Date Time Temp Pulse Resp B/P (MAP) Pulse Ox O2 Delivery O2 Flow Rate FiO2 02/24/17 08:11 97.8 89 18 190/90 (123) 100 Orders Orders Us Arm Venous Doppler (02/24/17 08:18) MDM Medical Decision Making Medical Screen Exam Complete: Yes Emergency Medical Condition: Yes Medical Record Reviewed: Yes Differential Diagnosis Forearm area redness, tenderness: Thrombophlebitis versus DVT versus abscess Narrative Course Ultrasound shows no signs of DVT but does show a superficial thrombophlebitis in the cephalic vein. At this point, patient has had a recent GI bleed and is contraindicated for anticoagulation right now. Plan would be to treat this conservatively with warm compresses. Follow-up with primary care physician. Return for worsening in symptoms as needed. The plan has discussed with her and she states understanding. Diagnosis Primary Impression: Superficial thrombophlebitis Disposition: 01 DISCHARGE HOME Condition: Stable SoonLm watkins MD Feb 24, 2017 08:20
--- NOTE | 2017-02-24 09:05 | RADRPT ---
EXAM DATE/TIME: 02/24/2017 08:29 [facility] COMPARISON: No previous studies available for comparison. INDICATIONS : Right forearm swelling and tenderness. MEDICAL HISTORY : Hypercholesterolemia. Hypertension. Chronic obstructive pulmonary disease. Diabetes. SURGICAL HISTORY : Colonoscopy. ENCOUNTER: Initial ACUITY: 2 day PAIN SCORE: 3/10 LOCATION: Right arm. FINDINGS: There is spontaneous flow documented in the brachial, basilic, axillary, and subclavian veins. The v essels are compressible and augmentation response is documented. No filling defects are seen. Zach r, there is occlusive thrombus seen in the right cephalic vein along its mid and distal forearm in th e area of recent IV lines. CONCLUSION: 1. No evidence of DVT. 2. There is evidence of superficial occlusive thrombus in the right cephalic vein. Berny Chris MD on February 24, 2017 at 9:02 Board Certified Radiologist. This report was verified electronically.
== END 2017-02-24 09:34 | disposition home or self-care (01) ==
LOC: NEPC 08:08
DX: I80.8 Phlebitis and thrombophlebitis of other sites (principal); I10 Essential (primary) hypertension; E78.00 Pure hypercholesterolemia, unspecified; J44.9 Chronic obstructive pulmonary disease, unspecified; E11.9 Type 2 diabetes mellitus without complications; F41.9 Anxiety disorder, unspecified; F32.9 Major depressive disorder, single episode, unspecified; M19.90 Unspecified osteoarthritis, unspecified site; G47.30 Sleep apnea, unspecified
CPT/HCPCS: 93971; 99284